=== PATIENT | male | born 1950 | race Caucasian/White ===

== ENCOUNTER → 2024-04-05 | Outpatient (CLI) | payer MEDICARE, SELFPAY ==
[2024-04-05 14:41] LABS: Prostate Specific Antigen 2.11 ng/mL (0-4.00)
== END | disposition home or self-care (01) ==
PROVIDERS: PCP Family Medicine; Referring Provider Family Medicine; Visit Provider Family Medicine
DX: N40.0 Benign prostatic hyperplasia without lower urinary tract symptoms (principal)
CPT/HCPCS: 36415; 84153

== ENCOUNTER 2024-05-03 03:56 | Emergency (ER) | payer MEDICARE, SELFPAY ==
[2024-05-03 04:02] VITALS: BP 156/70; PULSE 78; RESP 18; TEMP 36.9; O2SAT 98
[2024-05-03] MEDS: KETOROLAC INJ 60 MG/2 ML VIAL 30 MG IM (04:57)
--- NOTE | 2024-05-03 05:44 | PD.EDLOWEX ---
Lower Extremity Injury RME/HPI General Chief Complaint: Extremity Injury, Lower Stated Complaint: RIGHT KNEE PAIN Time Seen by Provider: 05/03/24 04:36 Arrival date/time: 05/03/24 03:56 74M with history of HTN presents to ED with R knee pain for the past few days w/o fall/trauma. Patient has chronic pain there, but it is worse in the past few days. Patient denies leg swelling, SOB, previous surgery, and weakness. Limitations: no limitations Related Data Home Medications ?Medication ?Instructions ?Recorded ?Confirmed ACETAMINOPHEN WITH CODEINE 1 - 2 tabs PO QPM ##0 03/04/10 (TYLENOL W/COD #3) Oxycodone Hcl/Acetaminophen * 1 tab PO TID ##0 03/04/10 (PERCOCET 7.5/325 *) Tramadol Hcl 50 mg PO TID ##0 03/04/10 lisinopril 10 mg tablet 10 mg PO DAILY ##0 03/04/10 meloxicam 15 mg tablet 15 mg PO DAILY ##0 03/04/10 Previous Rx's ?Medication ?Instructions ?Recorded amoxicillin 500 mg tablet 500 mg PO TID #21 tabs 02/23/22 ibuprofen 600 mg tablet 600 mg PO TID PRN pain #30 tabs 05/01/22 nirmatrelvir 300 mg (150 mg See Rx Instructions PO .COMPLEX 05/01/22 x2)-ritonavir 100 mg tablet,dose #30 tabs pack (Paxlovid) Allergies Allergy/AdvReac Type Severity Reaction Status Date / Time No Known Allergies Allergy Verified 05/03/24 03:57 Review of Systems Review of Systems Systems Reviewed: All systems reviewed, normal except as documented Constitutional Constitutional: Reports system reviewed and no additional complaints, except as documented, Denies fever(s) and Denies headache(s) ENT Ears, Nose, Mouth, and Throat: Denies disequilibrium and Denies headache(s) Cardiovascular Cardiovascular: Reports system reviewed and no additional complaints, except as documented, Denies chest pain and Denies dyspnea Respiratory Respiratory: Reports system reviewed and no additional complaints, except as documented, Denies cough and Denies dyspnea Gastrointestinal Gastrointestinal: Reports system reviewed and no additional complaints, except as documented, Denies abdominal pain, Denies nausea and Denies vomiting Musculoskeletal Musculoskeletal: Reports as per HPI and Reports arthralgias Neurologic Neurologic: Reports system reviewed and no additional complaints, except as documented, Denies confusion, Denies disequilibrium and Denies headache(s) Psychiatric Psychiatric: Denies confusion Past Medical History Social History SMOKING STATUS: Never smoker ED Exam General Limitations: Present no limitations General appearance: Present alert and in no apparent distress Head Head exam: Present atraumatic Eye Eye exam: Present normal appearance, PERRL and EOMI ENT ENT exam: Present normal exam, normal oropharynx and mucous membranes moist Neck Neck exam: Present normal inspection, full ROM and trachea midline Chest Chest inspection: Present normal inspection and symmetric chest wall rise Respiratory Respiratory exam: Present normal lung sounds bilaterally Cardiovascular Cardiovascular exam: Present regular rate, normal rhythm and normal heart sounds Abdominal Exam Abdominal exam: Present soft and normal bowel sounds Extremities Exam Extremities exam: Present normal inspection and full ROM Back Exam Back exam: Present normal inspection and full ROM Neurological Exam Neurological exam: Present alert, oriented X3 and CN II-XII intact Psychiatric Psychiatric exam: Present normal affect and normal mood Skin Skin exam: Present warm, dry, intact and normal color Course Quality Measures none Orders Category Date Time Status Crutches .NOW Care 05/03/24 04:58 Active Ketorolac Inj [Toradol Inj] Med 05/03/24 04:36 Discontinued 30 mg IM X1 ONE Vital Signs Vital signs: Vital Signs Temperature 98.4 F 05/03/24 04:02 Pulse Rate 78 05/03/24 04:02 Respiratory Rate 18 05/03/24 04:02 Blood Pressure 156/70 H 05/03/24 04:02 Pulse Oximetry (%) 98 05/03/24 04:02 Oxygen Delivery Method Room Air 05/03/24 04:02 O2 at 98% on RA and WNLs Extremity Injury, Lower MDM Narrative MDM Narrative:: 74M with history of HTN presents to ED with R knee pain for the past few days w/o fall/trauma. Patient has chronic pain there, but it is worse in the past few days. Patient denies leg swelling, SOB, previous surgery, and weakness. Physical exam reveals no R knee tenderness. ROM intact, but painful. No leg swelling. Clear lungs. Patient is afebrile, calm, and alert. Meds, crutches, and guidance counselor given. Patient data External records reviewed:: [facility] previous records Clinical information provided by:: patient Social determinants that could affect healthcare access:: none Patient has the following chronic illnesses:: HTN How is presenting disease/condition affected by chronic disease/condition?: uneffected by Evaluation data The following diagnostics were reviewed and interpreted by me:: other (specify) (none) Lab and/or radiology exams considered but not ordered:: not ordered Interpretation Summary: n/a Medications / Prescriptions Medications or Prescriptions considered but not ordered:: ordered Medication administrations:: Medication Administration History Discontinued Medications Ketorolac Tromethamine (Ketorolac Inj 60 Mg/2 Ml Vial) 30 mg IM X1 ONE Stop: 05/03/24 04:37 Last Admin: 05/03/24 04:57 Dose: 30 mg Documented By: CVL above Consultations Consultation(s) initiated? (list below): No Diagnosis Extremity Injury, Lower Differential Diagnosis: ankle sprain and strain, acute internal derangement of knee, fracture of femur, fracture of hip, puncture wound of foot, fracture of toe, ankle fracture and other (DVT, AAA) Most likely diagnosis given after review of the tests above:: internal derangement of knee Admission Indicated Admission indicated?: not indicated Admission Request Was there a request for admission?: No Disposition Plan Disposition Plan: Discharge Discharge Attestation Discharge Attestation: The patient and all family members were given an opportunity to ask questions and understood the discharge instructions. Discharge instructions specifically effects, indications for sooner follow up or return to the emergency department, and the expected course of current diagnosis. Patient condition: Stable Discharge Plan Plan Patient Disposition: HOME (Self Care) Disposition Comment: Stable Prescriptions/Referrals Prescriptions/Med Rec: No Action ACETAMINOPHEN WITH CODEINE (TYLENOL W/COD #3) 1 TAB tablet 1 - 2 tabs PO QPM Qty: 0 meloxicam 15 MG tablet 15 mg PO DAILY Qty: 0 lisinopril 10 MG tablet 10 mg PO DAILY Qty: 0 Oxycodone Hcl/Acetaminophen * (PERCOCET 7.5/325 *) 1 TAB tablet 1 tab PO TID Qty: 0 Tramadol Hcl 50 MG tablet 50 mg PO TID Qty: 0 amoxicillin 500 mg tablet 500 mg PO TID Qty: 21 0RF Paxlovid 300 mg (150 mg x 2)-100 mg tablets,dose pack See Rx Instructions .ROUTE .COMPLEX Qty: 30 0RF Rx Instructions: take TWO 150 mg tablets of nirmatrelvir with ONE 100 mg tablet of ritonavir twice daily for 5 days ibuprofen 600 mg tablet 600 mg PO TID PRN (Reason: pain) Qty: 30 0RF Problem List Clinical Impression: Knee pain Patient/Caregiver Discharge Instructions Education Materials: ED Arthralgia Additional Instructions: Please follow-up with PCP within 24-48 hours and return immediately if symptoms worsen. If problem persists, recommend outpatient PT and/or MRI follow-up. In the meantime, rest, use ice/heat, and/or compression. Print Language: New Zealander Stand Alone Forms: Patient Portal Info Letter PA/CHURCH MUSICIAN Supervising Physician PA/CHURCH MUSICIAN Supervising Physician: Dr. Parekh
== END 2024-05-03 05:29 | disposition home or self-care (01) ==
LOC: SERX 05:35
PROVIDERS: Emergency Provider Emergency Medicine
DX: M25.561 Pain in right knee (principal)
CPT/HCPCS: 96372; 99283; J1885

== ENCOUNTER 2024-11-08 06:54 | Emergency (ER) | payer MEDICARE, SELFPAY ==
[2024-11-08 07:01] VITALS: BP 139/73; PULSE 113; RESP 18; TEMP 37.2; O2SAT 96; BMI 29.1
[2024-11-08] MEDS: DEXAMETHASONE SOD PHOS INJ 10 MG/ML VIAL PO (07:24)
[2024-11-08] MEDS: KETOROLAC INJ 30 MG/ML VIAL IM (07:25)
[2024-11-08] MEDS: COLCHICINE 0.6 MG TABLET 1.2 MG PO (07:28)
--- NOTE | 2024-11-08 07:38 | XR_ITS ---
Examination: Duplex scan of the lower extremity, unilateral right Date and time of exam: November 08, 2024 0753 hrs. Indications: Right foot pain and swelling beginning 3 days ago, history gadolinium one year Technique: Duplex scan of the extremity veins using B-mode/grayscale imaging and Doppler spectral analysis and color flow Attention is directed to internal echogenicity, compression and augmentation involving these veins, color flow assessment, spectral analysis Findings: Major deep venous structures in the extremity demonstrate normal course and caliber. There is no evidence of deep vein thrombosis. Normal color flow and spectral analysis Impression: Negative for DVT..
--- NOTE | 2024-11-08 07:38 | XR_ITS ---
Examination: Foot, right, 3 views Technique: AP, oblique, lateral views foot, 3 views Date and time of exam: November 08, 2024 0738 hrs. Indications: Right foot swelling and pain beginning 3 days ago, history gadolinium Findings: Erosive changes distal first metatarsal with soft tissue calcifications, gadolinium arthropathy pattern No fracture No foreign body Impression: Findings most consistent with gouty arthropathy right first metatarsophalangeal joint
--- NOTE | 2024-11-08 08:25 | EDNOTE_ITS ---
<Statement entered by Gill Elliott MD - 11/27/24 06:06> As co-signing physician, I was present and available for consult prn. I concur with the plan and care as documented by the midlevel provider. Lower Extremity Injury RME/HPI General Chief Complaint: Ankle/Foot Injury Stated Complaint: RIGHT FOOT SWOLLEN, GOUT Time Seen by Provider: 11/08/24 06:57 Arrival date/time: 11/08/24 06:54 74-year-old male with history of gout presents to the emergency department for complaints of right great toe pain patient worsens onset approximately 1 week ago patient reports similar symptoms in the past Limitations: no limitations Related Data Home Medications ?Medication ?Instructions ?Recorded ?Confirmed ACETAMINOPHEN WITH CODEINE 1 - 2 tabs PO QPM ##0 03/04 (TYLENOL W/COD #3) Oxycodone Hcl/Acetaminophen * 1 tab PO TID ##0 1 (PERCOCET 7.5/325 *) Tramadol Hcl 50 mg PO TID ##0 03/04/10 lisinopril 10 mg tablet 10 mg PO DAILY ##0 03/04/10 meloxicam 15 mg tablet 15 mg PO DAILY ##0 03/04/10 Previous Rx's ?Medication ?Instructions ?Recorded amoxicillin 500 mg tablet 500 mg PO TID #21 tabs 02/23 ibuprofen 600 mg tablet 600 mg PO TID PRN pain #30 t abs 05/01/22 nirmatrelvir 300 mg (150 mg See Rx Instructions PO .CO MPLEX 05/01/22 x2)-ritonavir 100 mg tablet,dose #30 tabs pack (Paxlovid) indomethacin 50 mg capsule 50 mg PO TID 5 days #15 cap s 11/08/24 prednisone 10 mg tablet 30 mg (3 x 10 mg) PO BID 3 d ays 11/08/24 #18 tabs Allergies Allergy/AdvReac Type Severity Reaction Status Date / Time No Known Allergies Allergy Verified 05/03/24 03:57 Review of Systems Review of Systems Systems Reviewed: All systems reviewed, normal except as documented Constitutional Constitutional: Reports system reviewed and no additional complaints, except as documented, Denies fever(s) and Denies headache(s) Eyes Eyes: Reports system reviewed and no additional complaints, except as documented and Denies blurry vision ENT Ears, Nose, Mouth, and Throat: Reports system reviewed and no additional complaints, except as documented, Denies headache(s), Denies nasal congestion, Denies nasal discharge and Denies neck pain Cardiovascular Cardiovascular: Reports system reviewed and no additional complaints, except as documented, Denies chest pain and Denies dyspnea Respiratory Respiratory: Reports system reviewed and no additional complaints, except as documented, Denies chest congestion, Denies cough and Denies dyspnea Gastrointestinal Gastrointestinal: Reports system reviewed and no additional complaints, except as documented and Denies abdominal pain Musculoskeletal Musculoskeletal: Reports system reviewed and no additional complaints, except as documented, Reports arthralgias (Right great toe pain), Denies deformity, Denies neck pain, Denies numbness, Denies stiffness and Denies tingling Integumentary/Breasts Skin/Breast: Reports system reviewed and no additional complaints, except as documented and Denies rash Neurologic Neurologic: Reports system reviewed and no additional complaints, except as documented, Reports as per HPI, Denies headache(s), Denies numbness and Denies tingling Past Medical History Social History SMOKING STATUS: Never smoker ED Exam General Limitations: Present no limitations General appearance: Present alert and in no apparent distress Head Head exam: Present atraumatic, normocephalic and normal inspection Eye Eye exam: Present normal appearance, PERRL and EOMI ENT ENT exam: Present normal exam, normal oropharynx and mucous membranes moist Neck Neck exam: Present normal inspection, full ROM and trachea midline Chest Chest inspection: Present normal inspection and symmetric chest wall rise Respiratory Respiratory exam: Present normal lung sounds bilaterally Cardiovascular Cardiovascular exam: Present regular rate, normal rhythm and normal heart sounds Abdominal Exam Abdominal exam: Present soft and normal bowel sounds Extremities Exam Extremities exam: Present full ROM, tenderness, normal capillary refill and joint swelling Back Exam Back exam: Present normal inspection and full ROM Neurological Exam Neurological exam: Present alert, oriented X3 and CN II-XII intact Psychiatric Psychiatric exam: Present normal affect and normal mood Skin Skin exam: Present warm, dry, intact and normal color Course Quality Measures none Orders Category Date Time Status US venous doppler LE RT Stat Exams 11/08/24 07:38 Completed XR foot comp RT min 3V Stat Exams 11/08/24 07:38 Completed Colchicine Med 11/08/24 07:17 Discontinued 1.2 mg PO X1 ONE Dexamethasone Inj [Decadron Inj] Med 11/08/24 07:17 Discontinued 10 mg PO X1 ONE Ketorolac Inj [Toradol Inj] Med 11/08/24 07:17 Discontinued 30 mg IM X1 ONE Vital Signs Vital signs: Vital Signs Temperature 98.9 F 11/08/24 07:01 Pulse Rate 113 H 11/08/24 07:01 Respiratory Rate 18 11/08/24 07:01 Blood Pressure 139/73 H 11/08/24 07:01 Pulse Oximetry (%) 96 11/08/24 07:01 Oxygen Delivery Method Room Air 11/08/24 07:01 O2 saturation 96% room air within normal limits Extremity Injury, Lower MDM Narrative MDM Narrative:: 74-year-old male with history of gout presents to the emergency department for complaints of right great toe pain patient worsens onset approximately 1 week ago patient reports similar symptoms in the past On exam patient well-appearing patient does not appear ill or toxic in no acute distress Imaging obtained no acute emergent findings noted X-ray of the right foot consistent Patient discharged home in no distress to follow-up with primary care doctor in the next 24 to 48 hours and for any worsening symptoms to return to the ER immediately Patient data External records reviewed:: [facility] previous records Clinical information provided by:: patient Social determinants that could affect healthcare access:: none Patient has the following chronic illnesses:: None How is presenting disease/condition affected by chronic disease/condition?: no chronic disease Evaluation data The following diagnostics were reviewed and interpreted by me:: radiology exam(s) Lab and/or radiology exams considered but not ordered:: Radiology obtain Interpretation Summary: Reviewed by me Medications / Prescriptions Medications or Prescriptions considered but not ordered:: Given Medication administrations:: Medication Administration History Discontinued Medications Colchicine (Colchicine 0.6 Mg Tablet) 1.2 mg PO X1 ONE Stop: 11/08/24 07:18 Last Admin: 11/08/24 07:28 Dose: 1.2 mg Documented By: GM Dexamethasone Sodium Phosphate (Dexamethasone Sod Phos Inj 10 Mg/Ml Vial) 10 mg PO X1 ONE Stop: 11/08/24 07:18 Last Admin: 11/08/24 07:24 Dose: 10 mg Documented By: GM Comments: OK TO GIVE PO PER PROVIDER. Ketorolac Tromethamine (Ketorolac Inj 30 Mg/Ml Vial) 30 mg IM X1 ONE Stop: 11/08/24 07:18 Last Admin: 11/08/24 07:25 Dose: 30 mg Documented By: GM Given Consultations Consultation(s) initiated? (list below): No Diagnosis Extremity Injury, Lower Differential Diagnosis: fracture of toe and other (Toe sprain, gout) Most likely diagnosis given after review of the tests above:: Gout Admission Indicated Admission indicated?: not indicated Admission Request Was there a request for admission?: No Disposition Plan Disposition Plan: Discharge Discharge Attestation Discharge Attestation: The patient and all family members were given an opportunity to ask questions and understood the discharge instructions. Discharge instructions specifically effects, indications for sooner follow up or return to the emergency department, and the expected course of current diagnosis. Patient condition: Stable Discharge Plan Plan Patient Disposition: HOME (Self Care) Discharge Disposition comment: Stable Prescriptions/Referrals Prescriptions/Med Rec: New prednisone 10 mg tablet 30 mg PO BID 3 Days Qty: 18 0RF indomethacin 50 mg capsule 50 mg PO TID 5 Days Qty: 15 0RF Rx Instructions: administer with food or milk No Action ACETAMINOPHEN WITH CODEINE (TYLENOL W/COD #3) 1 TAB tablet 1 - 2 tabs PO QPM Qty: 0 meloxicam 15 MG tablet 15 mg PO DAILY Qty: 0 lisinopril 10 MG tablet 10 mg PO DAILY Qty: 0 Oxycodone Hcl/Acetaminophen * (PERCOCET 7.5/325 *) 1 TAB tablet 1 tab PO TID Qty: 0 Tramadol Hcl 50 MG tablet 50 mg PO TID Qty: 0 amoxicillin 500 mg tablet 500 mg PO TID Qty: 21 0RF Paxlovid 300 mg (150 mg x 2)-100 mg tablets,dose pack See Rx Instructions .ROUTE .COMPLEX Qty: 30 0RF Rx Instructions: take TWO 150 mg tablets of nirmatrelvir with ONE 100 mg tablet of ritonavir twice daily for 5 days ibuprofen 600 mg tablet 600 mg PO TID PRN (Reason: pain) Qty: 30 0RF Referrals: Benny Lopez PA-C [Primary Care Provider] - In 1 week Problem List Clinical Impression: Gouty arthritis of right foot Patient/Caregiver Discharge Instructions Education Materials: ED Gout Additional Instructions: Please follow up with your primary care doctor in the next 24-48hrs for any worsening symptoms return here immediately Print Language: Palauan Stand Alone Forms: Janine Award Info., Patient Portal Info Letter PA/MACHINE SORTER Supervising Physician PA/MACHINE SORTER Supervising Physician: Dr. elliott
== END 2024-11-08 08:38 | disposition home or self-care (01) ==
PROVIDERS: Emergency Provider Emergency Medicine; PCP Physician Assistant
DX: M10.071 Idiopathic gout, right ankle and foot (principal)
CPT/HCPCS: 73630; 93971; 96372; 99283; J1100; J1885; A9270

== ENCOUNTER 2024-11-13 19:04 | Emergency (ER) | payer MEDICARE, SELFPAY ==
--- NOTE | 2024-11-13 19:07 | EKG_ITS ---
[facility] Test Date: 2024-11-13 Pat Name: MARTÍNEZ HERNANDEZ Department: Room: - Gender: Male Access Manager: : 1950 Requested By: ED Temporary Provider Order Number: [id number] Reading MD: ED Temporary Provider Measurements Intervals [place] Rate: 52 P: OK: QRS: 1 QRSD: 97 T: 89 QT: 379 QTc: 354 Interpretive Statements SINUS BRADYCARDIA WITH 2ND DEGREE AV BLOCK, 2:1 OR MOBITZ TYPE II NONSPECIFIC T-WAVE ABNORMALITY CRITICAL TEST RESULT No previous ECG available for comparison /store/S0/[id number].pdf
[2024-11-13 19:55] VITALS: BP 131/63; PULSE 65; RESP 17; TEMP 36.6; O2SAT 98
--- NOTE | 2024-11-13 20:01 | PD.EDRME ---
Rapid Medical Screening Exam RME Arrival date/time: 11/13/24 19:04 Chief Complaint: Chest Pain Time Seen by Provider: 11/13/24 19:42 Vital signs: Vital Signs Temperature 97.9 F 11/13/24 19:55 Pulse Rate 65 11/13/24 19:55 Respiratory Rate 17 11/13/24 19:55 Blood Pressure 131/63 H 11/13/24 19:55 Pulse Oximetry (%) 98 11/13/24 19:55 Oxygen Delivery Method Room Air 11/13/24 19:55 E Narrative: Dizziness, shortness of breath, nausea x 10 days
--- NOTE | 2024-11-13 20:02 | XR_ITS ---
Examination: AP chest single view Technique: AP portable semiupright chest single view Date and time: November 13, 2024 2109 hrs. Indications: Shortness of breath beginning 10 days ago. Findings: Mild prominence left ventricle Minor blunting of the right lateral costophrenic angle. No pneumonia or pulmonary edema. Significant osteopenia Impression: No pneumonia or pulmonary edema
[2024-11-13 20:54] LABS: Basophils # (Auto) 0.0 Thou/mm3 (0.0-0.2); Basophils % (Auto) 0 % (0-2.5); Eosinophils # (Auto) 0.3 Thou/mm3 (0.0-0.5); Eosinophils % (Auto) 3 % (0-10); Hematocrit 37.3 % (41.0-53.0); Hemoglobin 12.4 g/dL (13.5-16.0); Immature Granulocytes Auto 0.10 Thou/mm3 (0.00-0.00); Lymphocytes # (Auto) 2.3 Thou/mm3 (1.0-4.8); Lymphocytes % (Auto) 22 % (10-50); Mean Corpuscular HGB Conc 33.2 g/dl (31.0-37.0); Mean Corpuscular Hemoglobin 30.6 pg (25.0-35.0); Mean Corpuscular Volume 92 fL (80-100); Monocytes # (Auto) 0.9 Thou/mm3 (0.0-0.8); Monocytes % (Auto) 9 % (0-12); Neutrophils # (Auto) 6.9 Thou/mm3 (1.8-7.7); Neutrophils % (Auto) 66 % (37-80); Nucleated Red Blood Cell # 0.00 Thou/mm3 (0.00-0.00); Nucleated Red Blood Cell % 0 /100 WBC (0); Platelet Count 219 Thou/mm3 (140-440); RDW Standard Deviation 44.1 fL (35.1-43.9); Red Blood Count 4.05 Miln/mm3 (4.50-5.90); White Blood Count 10.5 Thou/mm3 (3.8-10.6)
[2024-11-13 20:58] VITALS: BP 181/81; PULSE 62; RESP 16; TEMP 36.6; O2SAT 100; BMI 28.6
--- NOTE | 2024-11-13 21:04 | EDNOTE_ITS ---
ED Dizzyness RME/HPI General Chief Complaint: Dizziness Stated Complaint: Dizziness Time Seen by Provider: 11/13/24 21:05 Arrival date/time: 11/13/24 19:04 RME / HPI RME / HPI Narrative: Dizziness, shortness of breath, nausea x [address] CASTELAN MAIN ED EVALUATION: 74 y/o male with Hx of HTN and Hypercholesterolemia presents to ED c/o worsened dizziness and shortness of breath for several days. Also reports abdominal bloating. States symptoms usually resolve after taking HTN medication. Patient was told by PMD that he was close to having AK in the past. Denies Hx of DM or smoking. Related Data Home Medications ?Medication ?Instructions ?Recorded ?Confirmed ACETAMINOPHEN WITH CODEINE 1 - 2 tabs PO QPM ##0 03/04 (TYLENOL W/COD #3) Oxycodone Hcl/Acetaminophen * 1 tab PO TID ##0 1 (PERCOCET 7.5/325 *) Tramadol Hcl 50 mg PO TID ##0 03/04/10 lisinopril 10 mg tablet 10 mg PO DAILY ##0 03/04/10 meloxicam 15 mg tablet 15 mg PO DAILY ##0 03/04/10 Previous Rx's ?Medication ?Instructions ?Recorded amoxicillin 500 mg tablet 500 mg PO TID #21 tabs 02/23 ibuprofen 600 mg tablet 600 mg PO TID PRN pain #30 t abs 05/01/22 nirmatrelvir 300 mg (150 mg See Rx Instructions PO .CO MPLEX 05/01/22 x2)-ritonavir 100 mg tablet,dose #30 tabs pack (Paxlovid) Allergies Allergy/AdvReac Type Severity Reaction Status Date / Time No Known Allergies Allergy Verified 11/13/24 19:06 Review of Systems Review of Systems Systems Reviewed: All systems reviewed, normal except as documented Past Medical History Past Medical History CARDIAC: Positive Hypercholesterolemia and Hypertension GENITOURINARY: Positive Benign Prostatic Hyperplasia OTHER HISTORY: Positive Falls ED Exam Narrative Physical exam: Generally patient is alert and in no obvious distress, heart regular rate and rhythm, lungs clear to auscultation equal bilaterally, abdomen soft bowel sounds present nondistended nontender extremities show 1+ pitting pedal edema extending care home up tibias bilaterally with symmetrical swelling. Neurologic exam Elie Coma Scale is 15 without focal motor deficit Course Quality Measures none Orders Category Date Time Status EKG (ED ONLY) *Do not use* NOW Care 11/13/24 19:07 Completed CXR [XR chest 1V] Stat Exams 11/13/24 20:02 Taken EKG (ED Only) Stat Exams 11/13/24 19:07 Draft BNP [B-Type Natriuretic Peptide] Stat Lab 11/13/24 20:26 Completed CBC Stat Lab 11/13/24 20:26 Completed CMP [Comprehensive Metabolic Panel] Stat Lab 11/13/24 20:26 Completed Troponin I Stat Lab 11/13/24 20:26 Completed Vital Signs Vital signs: Vital Signs Temperature 97.9 F 11/13/24 19:55 Pulse Rate 65 11/13/24 19:55 Respiratory Rate 17 11/13/24 19:55 Blood Pressure 131/63 H 11/13/24 19:55 Pulse Oximetry (%) 98 11/13/24 19:55 Oxygen Delivery Method Room Air 11/13/24 19:55 Dizziness MDM Narrative MDM Narrative:: Scribe Attestation: I, Elizabeth Galvez, am scribing for and in the presence of Dr. Castelan. Provider Notation: Although this document has been carefully reviewed, there may still be some phonetic and other typographical errors. These errors are purely grammatical due to imperfections in the software program and should not be construed in any way to compromise the substance of the patient's medical care during this visit. Chest pain has been going on for many days. It is mostly related when his blood pressure may be getting high. Troponin is not elevated. BNP is not elevated. Chest x-ray shows normal cardiac silhouette with clear lungs. EKG shows sinus bradycardia at a rate of 52 without ischemic change or ectopy. Patient's blood pressure has slightly been increasing here in the emergency room to 181/80 at the time of my evaluation. He may go home and take his antihypertensive medication as prescribed. Follow-up with his doctor for further treatment and evaluation. Patient's heart score is 4 due to his risk factors and age. However, troponin is not elevated and that is a troponin with chest pain that has been going on much longer than 3 hours. He may follow-up with his doctor for further treatment and evaluation. Continue current blood pressure monitoring and treatment. When really questioned the patient is not experiencing chest pain he is more experiencing dyspnea with dyspnea on exertion. Patient data External records reviewed:: [facility] previous records (Reviewed prior ED records from 11/08/24. Patient was seen for Gouty arthritis of right foot.) Clinical information provided by:: patient Social determinants that could affect healthcare access:: none Patient has the following chronic illnesses:: HTN How is presenting disease/condition affected by chronic disease/condition?: exacerbated by Evaluation data The following diagnostics were reviewed and interpreted by me:: lab results, radiology exam(s) and EKG tracing(s) Lab and/or radiology exams considered but not ordered:: None Interpretation Summary: RADIOLOGY Chest X-Ray: Pending official radiology report. Medications / Prescriptions Medications or Prescriptions considered but not ordered:: None Medication administrations:: See above if any Consultations Consultation(s) initiated? (list below): No Diagnosis Dizziness Differential Diagnosis: adverse reaction to drug, benign paroxysmal positional vertigo, orthostatic hypotension, cerebrovascular accident, acute vestibular neuronitis, transient cerebral ischemia and other (Hypertensive urgency vs emergency) Most likely diagnosis given after review of the tests above:: none Admission Indicated Admission indicated?: not indicated Explain why admission is indicated or not indicated:: Patient does not meet admission criteria Admission Request Was there a request for admission?: No Disposition Plan Disposition Plan: Discharge Discharge Attestation Discharge Attestation: The patient and all family members were given an opportunity to ask questions and understood the discharge instructions. Discharge instructions specifically effects, indications for sooner follow up or return to the emergency department, and the expected course of current diagnosis. Patient condition: Stable Discharge Plan Plan Patient Disposition: HOME (Self Care) Prescriptions/Referrals Prescriptions/Med Rec: No Action ACETAMINOPHEN WITH CODEINE (TYLENOL W/COD #3) 1 TAB tablet 1 - 2 tabs PO QPM Qty: 0 meloxicam 15 MG tablet 15 mg PO DAILY Qty: 0 lisinopril 10 MG tablet 10 mg PO DAILY Qty: 0 Oxycodone Hcl/Acetaminophen * (PERCOCET 7.5/325 *) 1 TAB tablet 1 tab PO TID Qty: 0 Tramadol Hcl 50 MG tablet 50 mg PO TID Qty: 0 amoxicillin 500 mg tablet 500 mg PO TID Qty: 21 0RF Paxlovid 300 mg (150 mg x 2)-100 mg tablets,dose pack See Rx Instructions .ROUTE .COMPLEX Qty: 30 0RF Rx Instructions: take TWO 150 mg tablets of nirmatrelvir with ONE 100 mg tablet of ritonavir twice daily for 5 days ibuprofen 600 mg tablet 600 mg PO TID PRN (Reason: pain) Qty: 30 0RF Referrals: Benny Lopez PA-C [Primary Care Provider] - In 1 week Problem List Clinical Impression: Dyspnea, Hypertension Patient/Caregiver Discharge Instructions Education Materials: ED Shortness of Breath (Dyspnea), ED Hypertension, Established Additional Instructions: At this time continue current medications including your blood pressure medication. Follow-up with your doctor who prescribes your medication for medication adjustment as needed. There is no evidence of heart attack or heart failure at this time. Print Language: Greenlandic Stand Alone Forms: Janine Award Info., Patient Portal Info Letter
[2024-11-13 21:12] LABS: B-Type Natriuretic Peptide 45 pg/mL (0-100)
[2024-11-13 21:15] LABS: Alanine Aminotransferase 24 U/L (10-49); Albumin, Serum 3.8 gm/dL (3.4-4.8); Albumin/Globulin Ratio 1.4 (1.2-2.2); Alkaline Phosphatase 93 U/L (46-116); Anion Gap 7 (7-16); Aspartate Amino Transferase 21 U/L (0-34); BUN/Creatinine Ratio 19 Ratio (12-20); Bilirubin,Total 0.3 mg/dL (0.3-1.2); Blood Urea Nitrogen 27 mg/dL (9-23); Calcium 9.1 mg/dL (8.3-10.6); Calcium (Corrected) 9.3 mg/dL (8.5-10.1); Carbon Dioxide 29.2 mMol/L (20.0-31.0); Chloride 104 mMol/L (98-107); Creatinine (Component) 1.4 mg/dL (0.6-1.3); Estimated Creatinine Clearance 43.2 mL/min (>60); Globulin 2.7 gm/dL (2.3-3.5); Glucose 133 mg/dL (74-106); Osmolality,Calculated 286 (275-295); Potassium 4.1 mMol/L (3.4-5.1); Sodium 140 mMol/L (136-145); Total Protein 6.5 gm/dL (5.7-8.2); Troponin I < 0.020 ng/mL (0.0-0.045); eGFR 52 See Note
== END 2024-11-13 21:54 | disposition home or self-care (01) ==
PROVIDERS: Physician Assistant; Emergency Provider Emergency Medicine; PCP Physician Assistant
DX: I10 Essential (primary) hypertension (principal); R06.00 Dyspnea, unspecified; R07.9 Chest pain, unspecified; R00.1 Bradycardia, unspecified; E78.00 Pure hypercholesterolemia, unspecified; Z79.899 Other long term (current) drug therapy
CPT/HCPCS: 36415; 71045; 80053; 83880; 84484; 85025; 93005; 99283

== ENCOUNTER 2024-11-14 01:27 | Emergency (ER) | payer MEDICARE, SELFPAY ==
[2024-11-14 01:42] VITALS: BP 129/72; PULSE 84; RESP 18; TEMP 36.7; O2SAT 96
--- NOTE | 2024-11-14 02:23 | PD.EDHA ---
ED Headache RME/HPI General Chief Complaint: General Adult/Misc Complain Stated Complaint: HEADACHE, HIGH BP Time Seen by Provider: 11/14/24 02:22 Source: patient, RN notes reviewed and old records reviewed Arrival date/time: 11/14/24 01:27 Mode of arrival: ambulatory Limitations: no limitations RME / HPI RME / HPI Narrative: 74yom presents ED for generalized headache. Patient stated he is unable to sleep. Of note, patient sleeping in triage room at time of evaluation. Patient was just discharged from ED at 2130 last night after full workup for dizziness, shortness of breath. 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 Patient denies fever, neck pain, vision changes. Related Data Home Medications ?Medication ?Instructions ?Recorded ?Confirmed ACETAMINOPHEN WITH CODEINE 1 - 2 tabs PO QPM ##0 03/04/10 (TYLENOL W/COD #3) Oxycodone Hcl/Acetaminophen * 1 tab PO TID ##0 03/04/10 (PERCOCET 7.5/325 *) Tramadol Hcl 50 mg PO TID ##0 03/04/10 lisinopril 10 mg tablet 10 mg PO DAILY ##0 03/04/10 meloxicam 15 mg tablet 15 mg PO DAILY ##0 03/04/10 Previous Rx's ?Medication ?Instructions ?Recorded amoxicillin 500 mg tablet 500 mg PO TID #21 tabs 02/23/22 ibuprofen 600 mg tablet 600 mg PO TID PRN pain #30 tabs 05/01/22 nirmatrelvir 300 mg (150 mg See Rx Instructions PO .COMPLEX 05/01/22 x2)-ritonavir 100 mg tablet,dose #30 tabs pack (Paxlovid) acetaminophen 325 mg tablet 325 mg PO QID #30 tabs 11/14/24 (Tylenol) acetaminophen 500 mg tablet 1,000 mg (2 x 500 mg) PO Q6H PRN 11/14/24 (Tylenol Extra Strength) pain #20 tabs Allergies Allergy/AdvReac Type Severity Reaction Status Date / Time No Known Allergies Allergy Verified 11/14/24 21:01 Review of Systems Review of Systems Systems Reviewed: All systems reviewed, normal except as documented Constitutional Constitutional: Denies chills, Denies fever(s) and Reports headache(s) Eyes Eyes: Denies blurry vision and Denies loss of vision ENT Ears, Nose, Mouth, and Throat: Reports headache(s), Denies nasal congestion and Denies neck pain Gastrointestinal Gastrointestinal: Denies nausea and Denies vomiting Musculoskeletal Musculoskeletal: Denies neck pain Neurologic Neurologic: Reports headache(s) and Denies loss of vision ED Exam General Limitations: Present no limitations General appearance: Present alert and in no apparent distress Head Head exam: Present atraumatic and normocephalic Eye Eye exam: Present normal appearance, PERRL and EOMI ENT ENT exam: Present normal exam and mucous membranes moist Neck Neck exam: Present normal inspection and full ROM; Absent meningismus Chest Chest inspection: Present normal inspection and symmetric chest wall rise Respiratory Respiratory exam: Present normal lung sounds bilaterally; Absent respiratory distress Cardiovascular Cardiovascular exam: Present regular rate and normal rhythm Extremities Exam Extremities exam: Present normal inspection and full ROM Back Exam Back exam: Present normal inspection and full ROM; Absent tenderness Neurological Exam Neurological exam: Present alert, oriented X3, CN II-XII intact and normal gait; Absent motor sensory deficit Psychiatric Psychiatric exam: Present normal affect and normal mood Skin Skin exam: Present warm, dry, intact and normal color Course Quality Measures none Orders Category Date Time Status Acetaminophen Tab [Tylenol ES Tab] Med 11/14/24 02:25 Discontinued 1,000 mg PO X1 ONE DiphenhydrAMINE [Benadryl] Med 11/14/24 02:25 Discontinued 25 mg PO X1 ONE Metoclopramide [Reglan] Med 11/14/24 02:25 Discontinued 10 mg PO X1 ONE Vital Signs Vital signs: Vital Signs Temperature 98.0 F 11/14/24 01:42 Pulse Rate 84 11/14/24 01:42 Respiratory Rate 18 11/14/24 01:42 Blood Pressure 129/72 11/14/24 01:42 Pulse Oximetry (%) 96 11/14/24 01:42 Oxygen Delivery Method Room Air 11/14/24 01:42 Headache MDM Narrative MDM Narrative:: 74yom presents ED for generalized headache. Patient stated he is unable to sleep. Of note, patient sleeping in triage room at time of evaluation. Patient was just discharged from ED at 2130 last night after full workup for dizziness, shortness of breath. 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 Patient denies fever, neck pain, vision changes. Headache treated in ED. Patient is well-appearing, afebrile, vitals are stable. He is neurologically intact. ED workup from last night was reviewed and reassuring. Encouraged rest, fluids, symptomatic treatment prn. Close PCP follow-up recommended. Stable for discharge, RTED precautions given. Patient data External records reviewed:: [facility] previous records (11/13/24 ED visit for shortness of breath) Clinical information provided by:: patient Social determinants that could affect healthcare access:: other (specify) (poor access to healthcare, acculturation difficulty) Patient has the following chronic illnesses:: Hypertension How is presenting disease/condition affected by chronic disease/condition?: uneffected by Evaluation data The following diagnostics were reviewed and interpreted by me:: other (specify) (None) Lab and/or radiology exams considered but not ordered:: CT head: Patient is neurologically intact. No red flag s/sxs Interpretation Summary: na Medications / Prescriptions Medications or Prescriptions considered but not ordered:: No antibiotics recommended at this time Medication administrations:: Medication Administration History Discontinued Medications Acetaminophen (Acetaminophen 500 Mg Tablet) 1,000 mg PO X1 ONE Stop: 11/14/24 02:26 Last Admin: 11/14/24 02:54 Dose: 1,000 mg Documented By: PETER Diphenhydramine HCl (Diphenhydramine 25 Mg Capsule) 25 mg PO X1 ONE Stop: 11/14/24 02:26 Last Admin: 11/14/24 02:54 Dose: 25 mg Documented By: PETER Metoclopramide HCl (Metoclopramide 5 Mg Tablet) 10 mg PO X1 ONE Stop: 11/14/24 02:26 Last Admin: 11/14/24 02:55 Dose: 10 mg Documented By: PETER Above medications administered in ED Consultations Consultation(s) initiated? (list below): No Diagnosis Differential diagnosis headache: migraine, tension headache, subarachnoid hemorrhage, headache, meningitis and sinusitis Most likely diagnosis given after review of the tests above:: Headache Admission Indicated Admission indicated?: not indicated Admission Request Was there a request for admission?: No Disposition Plan Disposition Plan: Discharge Discharge Attestation Discharge Attestation: The patient and all family members were given an opportunity to ask questions and understood the discharge instructions. Discharge instructions specifically effects, indications for sooner follow up or return to the emergency department, and the expected course of current diagnosis. Patient condition: Stable Discharge Plan Plan Patient Disposition: HOME (Self Care) Patient condition on transfer: Stable Prescriptions/Referrals Prescriptions/Med Rec: New acetaminophen [Tylenol Extra Strength] 500 mg tablet 1,000 mg PO Q6H PRN (Reason: pain) Qty: 20 0RF No Action ACETAMINOPHEN WITH CODEINE (TYLENOL W/COD #3) 1 TAB tablet 1 - 2 tabs PO QPM Qty: 0 meloxicam 15 MG tablet 15 mg PO DAILY Qty: 0 lisinopril 10 MG tablet 10 mg PO DAILY Qty: 0 Oxycodone Hcl/Acetaminophen * (PERCOCET 7.5/325 *) 1 TAB tablet 1 tab PO TID Qty: 0 Tramadol Hcl 50 MG tablet 50 mg PO TID Qty: 0 amoxicillin 500 mg tablet 500 mg PO TID Qty: 21 0RF Paxlovid 300 mg (150 mg x 2)-100 mg tablets,dose pack See Rx Instructions .ROUTE .COMPLEX Qty: 30 0RF Rx Instructions: take TWO 150 mg tablets of nirmatrelvir with ONE 100 mg tablet of ritonavir twice daily for 5 days ibuprofen 600 mg tablet 600 mg PO TID PRN (Reason: pain) Qty: 30 0RF acetaminophen [Tylenol] 325 mg tablet 325 mg PO QID Qty: 30 0RF Referrals: Benny Lopez PA-C [Primary Care Provider] - In 1 week Problem List Clinical Impression: Headache Patient/Caregiver Discharge Instructions Education Materials: Self-Care for Headaches Print Language: Niuean Stand Alone Forms: Janine Award Info., Patient Portal Info Letter PA/AKIKO Supervising Physician PA/AKIKO Supervising Physician: Darrell
[2024-11-14] MEDS: ACETAMINOPHEN 500 MG TABLET 1000 MG PO (02:54)
[2024-11-14] MEDS: METOCLOPRAMIDE 5 MG TABLET 10 MG PO (02:55)
[2024-11-14 03:30] VITALS: RESP 18
== END 2024-11-14 03:30 | disposition home or self-care (01) ==
PROVIDERS: Emergency Provider Emergency Medicine; PCP Physician Assistant
DX: R51.9 Headache, unspecified (principal)
CPT/HCPCS: 99283; A9270

== ENCOUNTER 2024-11-14 09:04 | Emergency (ER) | payer MEDICARE, SELFPAY ==
[2024-11-14 09:33] VITALS: BP 144/67; PULSE 66; RESP 18; TEMP 36.7; O2SAT 97; BMI 28.6
--- NOTE | 2024-11-14 09:42 | EKG_ITS ---
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
--- NOTE | 2024-11-14 09:42 | XR_ITS ---
Examination: CT abdomen and pelvis without contrast. Coronal 3-D reconstructions. Sagittal 2-D reconstructions. Date and time of exam:November 14, 2024 1149 hours INDICATIONS: Lower abdominal pain and pelvic pain beginning one month ago CTDI: vol (mGy): 7.59 DLP: (mGycm): 8 oh Technique: Axial images of the abdomen have been obtained, 3 mm slice thickness Intravenous contrast material has not been administered. Low dose protocols were performed. One or more of the following dose reduction techniques were used; automated exposure control, adjustment of the mA and/or KV according to patient size, use of iterative reconstruction technique. Findings: No visualized liver lesion Contracted gallbladder. Spleen is not enlarged No pancreatic or adrenal mass Perinephric stranding No renal or ureteral calculi, no hydronephrosis Aorta normal size No pericecal inflammatory change No bowel obstruction No diverticulitis Transverse prostate dimension 4.3 cm Intact urinary bladder Prominent osteopenia Advanced degenerative disc disease L5-S1 IMPRESSION: Perinephric stranding, consider urinary tract infection No renal or ureteral calculi, no hydronephrosis Normal appendix No bowel obstruction or diverticulitis Mild prostatomegaly
--- NOTE | 2024-11-14 09:43 | PD.EDRME ---
Rapid Medical Screening Exam RME Arrival date/time: 11/14/24 09:04 74-year-old male with no known medical history presents to the emergency room with a chief complaint of abdominal pain and nausea x 3 days I have greeted and performed a focused initial assessment of this patient. A comprehensive ED assessment and evaluation of the patient, analysis of all test results, and completion of the medical decision making process will be conducted by additional ED providers. Chief Complaint: Abdominal Pain Vital signs: Vital Signs Temperature 98.0 F 11/14/24 09:33 Pulse Rate 66 11/14/24 09:33 Respiratory Rate 18 11/14/24 09:33 Blood Pressure 144/67 H 11/14/24 09:33 Pulse Oximetry (%) 97 11/14/24 09:33 Oxygen Delivery Method Room Air 11/14/24 09:33 Vital signs reviewed by provider: Yes
[2024-11-14 10:40] LABS: Basophils # (Auto) 0.0 Thou/mm3 (0.0-0.2); Basophils % (Auto) 0 % (0-2.5); Eosinophils # (Auto) 0.2 Thou/mm3 (0.0-0.5); Eosinophils % (Auto) 2 % (0-10); Hematocrit 37.2 % (41.0-53.0); Hemoglobin 12.5 g/dL (13.5-16.0); Immature Granulocytes Auto 0.05 Thou/mm3 (0.00-0.00); Lymphocytes # (Auto) 1.7 Thou/mm3 (1.0-4.8); Lymphocytes % (Auto) 16 % (10-50); Mean Corpuscular HGB Conc 33.6 g/dl (31.0-37.0); Mean Corpuscular Hemoglobin 30.9 pg (25.0-35.0); Mean Corpuscular Volume 92 fL (80-100); Monocytes # (Auto) 0.8 Thou/mm3 (0.0-0.8); Monocytes % (Auto) 8 % (0-12); Neutrophils # (Auto) 7.9 Thou/mm3 (1.8-7.7); Neutrophils % (Auto) 74 % (37-80); Nucleated Red Blood Cell # 0.00 Thou/mm3 (0.00-0.00); Nucleated Red Blood Cell % 0 /100 WBC (0); Platelet Count 217 Thou/mm3 (140-440); RDW Standard Deviation 44.2 fL (35.1-43.9); Red Blood Count 4.04 Miln/mm3 (4.50-5.90); White Blood Count 10.8 Thou/mm3 (3.8-10.6)
[2024-11-14 10:58] LABS: B-Type Natriuretic Peptide < 20 pg/mL (0-100)
[2024-11-14 11:02] LABS: Alanine Aminotransferase 24 U/L (10-49); Albumin, Serum 4.0 gm/dL (3.4-4.8); Albumin/Globulin Ratio 1.4 (1.2-2.2); Alkaline Phosphatase 87 U/L (46-116); Amylase 138 U/L (30-118); Anion Gap 8 (7-16); Aspartate Amino Transferase 25 U/L (0-34); BUN/Creatinine Ratio 18 Ratio (12-20); Bilirubin,Total 0.4 mg/dL (0.3-1.2); Blood Urea Nitrogen 23 mg/dL (9-23); Calcium 9.5 mg/dL (8.3-10.6); Calcium (Corrected) 9.5 mg/dL (8.5-10.1); Carbon Dioxide 28.2 mMol/L (20.0-31.0); Chloride 105 mMol/L (98-107); Creatinine (Component) 1.3 mg/dL (0.6-1.3); Estimated Creatinine Clearance 46.6 mL/min (>60); Globulin 2.8 gm/dL (2.3-3.5); Glucose 105 mg/dL (74-106); Osmolality,Calculated 284 (275-295); Potassium 4.5 mMol/L (3.4-5.1); Sodium 141 mMol/L (136-145); Total Protein 6.8 gm/dL (5.7-8.2); Troponin I < 0.020 ng/mL (0.0-0.045); eGFR 57 See Note
[2024-11-14 11:24] LABS: Collection Type, Urine Clean Catch; Squamous Epithelial Cell,Urine 0 /hpf (0-5)
[2024-11-14 11:27] LABS: Bilirubin,Urine Negative (Negative); Blood,Urine Negative (Negative); Clarity,Urine Clear (Clear/Hazy); Color,Urine Colorless (Lt Yel-Yel); Culture Indicated,Urine Not Indicated; Glucose, Urine Negative (Negative); Ketones,Urine Negative (Negative); Leukocyte Esterase,Urine Negative (Negative); Nitrite,Urine Negative (Negative); PH,Urine 7.0 (5.0-7.0); Protein,Urine Negative (Neg - Trace); RBC,Urine < 1 /hpf (0-3); Specific Gravity,Urine 1.008 (1.001-1.035); Urobilinogen,Urine Negative mg/dL (0.0-1.0); WBC,Urine < 1 /hpf (0-5)
--- NOTE | 2024-11-14 12:53 | PD.EDADULT ---
ED General RME/HPI General Chief complaint: Abdominal Pain Stated complaint: ABD PAIN, 08/31 Time Seen by Provider: 11/14/24 12:53 Arrival date/time: 11/14/24 09:04 CC: Abdominal pain HPI ongoing for years, but worse in the past 4 days. When asked what caused the pain to start, the patient state he came here for medicine for his knee pain. Son produced the tablets which turned out to be prednisone and indomethacin. Son also noticed during the past 4 days the patient has not gotten any sleep. Patient is awake alert oriented nontoxic-appearing not in any acute distress. RME / HPI RME / HPI narrative: 11/14/24 09:04 74-year-old male with no known medical history presents to the emergency room with a chief complaint of abdominal pain and nausea x 3 days I have greeted and performed a focused initial assessment of this patient. A comprehensive ED assessment and evaluation of the patient, analysis of all test results, and completion of the medical decision making process will be conducted by additional ED providers. Related Data Home Medications ?Medication ?Instructions ?Recorded ?Confirmed ACETAMINOPHEN WITH CODEINE 1 - 2 tabs PO QPM ##0 03/04/10 (TYLENOL W/COD #3) Oxycodone Hcl/Acetaminophen * 1 tab PO TID ##0 03/04/10 (PERCOCET 7.5/325 *) Tramadol Hcl 50 mg PO TID ##0 03/04/10 lisinopril 10 mg tablet 10 mg PO DAILY ##0 03/04/10 meloxicam 15 mg tablet 15 mg PO DAILY ##0 03/04/10 Previous Rx's ?Medication ?Instructions ?Recorded amoxicillin 500 mg tablet 500 mg PO TID #21 tabs 02/23/22 ibuprofen 600 mg tablet 600 mg PO TID PRN pain #30 tabs 05/01/22 nirmatrelvir 300 mg (150 mg See Rx Instructions PO .COMPLEX 05/01/22 x2)-ritonavir 100 mg tablet,dose #30 tabs pack (Paxlovid) acetaminophen 325 mg tablet 325 mg PO QID #30 tabs 11/14/24 (Tylenol) acetaminophen 500 mg tablet 1,000 mg (2 x 500 mg) PO Q6H PRN 11/14/24 (Tylenol Extra Strength) pain #20 tabs Allergies Allergy/AdvReac Type Severity Reaction Status Date / Time No Known Allergies Allergy Verified 11/14/24 09:07 Review of Systems Review of Systems Narrative Review of Systems: GEN: No fever, no chills, no weight loss EYES: No discharge, no visual changes, no pain HEENT: No ear pain, no congestion, no sore throat PULM: No shortness of breath, no cough, no congestion CV: No chest pain, no dyspnea on exertion, no palpitations GI: No nausea, no vomiting, no diarrhea, + pain, no constipation : No frequency, no urgency, no dysuria MUSC/SKEL: No joint pain, no back pain SKIN: No rash PSYCH: No hallucinations, no depression HEME/LYMPH: No easy bleeding or bruising tendencies NEURO: No weakness, no headache ED Exam Narrative Physical exam: [General: Not in any acute distress Head normocephalic HEENT: Within acceptable limits Neck is supple nontender Chest equal chest rise nontender to palpation Respiratory: Clear to auscultation no wheezes crackles or rubs CV: Rate rhythm is regular no murmurs rubs or clicks Abdomen is distended secondary to body habitus soft nontender no masses positive bowel sounds all 4 quadrants Back: No CVA tenderness no spinous process tenderness from cervical spine thoracic and lumbar spine Skin: Intact no petechiae rash induration ulceration or crepitus Extremities: Moving all extremity against resistance cap refill less than 2 seconds neurosensory intact Neuro: Awake alert oriented x2, person and place, Glascow coma 15 no focal deficits] Course Course Course Narrative: After lengthy conversation with the son and the patient I suspect the patient's abdominal pain is secondary to prednisone into medicines taken without food. At this time we will discontinue both of those and start the patient on Tylenol for the knee pain he is to follow-up with his primary care doctor. There is no acute finding in the laboratory results or imaging Quality Measures none Orders Category Date Time Status EKG (ED ONLY) *Do not use* NOW Care 11/14/24 09:[address] abdomen pelvis wo con Stat Exams 11/14/24 09:42 Completed EKG (ED Only) Stat Exams 11/14/24 09:42 Draft Amylase Stat Lab 11/14/24 10:22 Completed B-Type Natriuretic Peptide Stat Lab 11/14/24 10:22 Completed CBC Stat Lab 11/14/24 10:22 Completed Comprehensive Metabolic Panel Stat Lab 11/14/24 10:22 Completed Troponin I Stat Lab 11/14/24 10:22 Completed Urinalysis, C/S if Indicated Stat Lab 11/14/24 11:15 Completed Vital Signs Vital signs: Vital Signs Temperature 98.0 F 11/14/24 09:33 Pulse Rate 66 11/14/24 09:33 Respiratory Rate 18 11/14/24 09:33 Blood Pressure 144/67 H 11/14/24 09:33 Pulse Oximetry (%) 97 11/14/24 09:33 Oxygen Delivery Method Room Air 11/14/24 09:33 Discharge Plan Plan Patient Disposition: HOME (Self Care) Patient condition on transfer: Stable Prescriptions/Referrals Prescriptions/Med Rec: New acetaminophen [Tylenol] 325 mg tablet 325 mg PO QID Qty: 30 0RF No Action ACETAMINOPHEN WITH CODEINE (TYLENOL W/COD #3) 1 TAB tablet 1 - 2 tabs PO QPM Qty: 0 meloxicam 15 MG tablet 15 mg PO DAILY Qty: 0 lisinopril 10 MG tablet 10 mg PO DAILY Qty: 0 Oxycodone Hcl/Acetaminophen * (PERCOCET 7.5/325 *) 1 TAB tablet 1 tab PO TID Qty: 0 Tramadol Hcl 50 MG tablet 50 mg PO TID Qty: 0 amoxicillin 500 mg tablet 500 mg PO TID Qty: 21 0RF acetaminophen [Tylenol Extra Strength] 500 mg tablet 1,000 mg PO Q6H PRN (Reason: pain) Qty: 20 0RF Paxlovid 300 mg (150 mg x 2)-100 mg tablets,dose pack See Rx Instructions .ROUTE .COMPLEX Qty: 30 0RF Rx Instructions: take TWO 150 mg tablets of nirmatrelvir with ONE 100 mg tablet of ritonavir twice daily for 5 days ibuprofen 600 mg tablet 600 mg PO TID PRN (Reason: pain) Qty: 30 0RF Referrals: Dk Valadez MD [Primary Care Provider, Family Practice] - In 1 week Problem List Clinical Impression: Abdominal pain Patient/Caregiver Discharge Instructions Other Activity Instructions:: Start taking the Tylenol for your knee pain. Avoid the steroids and indomethacin. Follow-up with your primary care doctor. If there is worsening of symptoms in spite of the medications return the emergency room immediately for further evaluation. Education Materials: Abdominal Pain Print Language: Japanese Stand Alone Forms: Janine Award Info., Patient Portal Info Letter, Work/School Release MARCOS/AKIKO Supervising Physician NASIR Supervising Physician: Rodrigo Perez ENP MDM Clinical Information Provided by: patient and family Medical Records reviewed [facility] Meds/Rx considered, not ordered None Labs/Rad/Tests considered, not ordered None Chronic Illness/Social Conditions Explain: None EKG EKG not done Labs Labs: interpreted by me Lab(s) Interpretation(s): CBC shows WBCs at 10.8 H&H of 12.5 and 37.2 respectively. Platelet count of 217. CMP shows no significant electrolyte imbalances renal impairment transaminitis or T. bili elevation Amylase at 138. Urine is negative for any acute finding Imaging Imaging interpretation: interpreted by me Imaging Interpretation(s): CT of the abdomen shows some perinephric stranding but no other acute finding as interpreted by me read by radiology. Medication Administration(s) none Diagnosis Differential Diagnosis ED Complaint MDM: UTI ileus obstruction
== END 2024-11-14 13:55 | disposition home or self-care (01) ==
PROVIDERS: Nurse Practitioner Family; Emergency Provider Emergency Medicine; PCP Family Medicine
DX: R10.9 Unspecified abdominal pain (principal); M25.569 Pain in unspecified knee
CPT/HCPCS: 36415; 74176; 80053; 81001; 82150; 83880; 84484; 85025; 93005; 99283

== ENCOUNTER 2024-11-14 21:00 | Emergency (ER) | payer MEDICARE, SELFPAY ==
[2024-11-14 21:17] VITALS: BP 141/71; PULSE 101; RESP 18; TEMP 37.1; O2SAT 97; BMI 28.3
--- NOTE | 2024-11-14 21:40 | XR_ITS ---
Examination: CT brain head without contrast. 2-D sagittal coronal reconstructions Date and time of exam:November 14, 2024 2153 hrs. Indications: Headache dizziness beginning 3 days ago CTDI: vol (mGy):51.5 DLP: (mGycm):1060 Technique: Multiple CT axial sections of the brain have been obtained, 5 mm slice thickness. Contrast has not been administered. 2-D sagittal, coronal reconstructions have been obtained Low dose protocols were performed. One or more of the following dose reduction techniques were used; automated exposure control, adjustment of the mA and/or KV according to patient size, use of iterative reconstruction technique. Findings: No significant ventricular enlargement. Intra-axial or extra-axial hemorrhage density is not seen. No mass effect or midline shift Basal cisterns are not remarkable. Fourth ventricle is midline. Cranial vault intact. Impression: Negative for acute hemorrhage, mass effect or midline shift
--- NOTE | 2024-11-14 21:40 | PD.EDRME ---
Rapid Medical Screening Exam RME Arrival date/time: 11/14/24 21:00 74M with history of HTN presents to ED with 3 days of HOROWITZ, body aches, fevers/chills/paresthesia, and dizziness, as well as insomnia. This is patient's 3rd visit for this. Chief Complaint: General Adult/Misc Complain Vital signs: Vital Signs Temperature 98.8 F 11/14/24 21:17 Pulse Rate 101 H 11/14/24 21:17 Respiratory Rate 18 11/14/24 21:17 Blood Pressure 141/71 H 11/14/24 21:17 Pulse Oximetry (%) 97 11/14/24 21:17 Oxygen Delivery Method Room Air 11/14/24 21:17
[2024-11-14 22:35] LABS: Influenza A Ag Negative; Influenza B Ag Negative
[2024-11-14 22:49] VITALS: BP 140/97; PULSE 90; RESP 19; O2SAT 96
--- NOTE | 2024-11-14 22:51 | PD.EDADULT ---
ED General RME/HPI General Chief complaint: General Adult/Misc Complain Stated complaint: HEADACHE,BODYACHES, NOT SLEEPING Arrival date/time: 11/14/24 21:00 RME / HPI RME / HPI narrative: 11/14/24 21:00 74M with history of HTN presents to ED with 3 days of HOROWITZ, body aches, fevers/chills/paresthesia, and dizziness, as well as insomnia. This is patient's 3rd visit for this. --------- Dr. Ramírez?s Main ED Evaluation: 74yo male presents to the ED for complaints of difficulty sleeping, generalized itching to both of his arms, and subjective fever for the last 3 days. Patient has not been sleeping for the last 3 days and his family member is concerned. Denies any other associated symptoms. NKA. Related Data Home Medications ?Medication ?Instructions ?Recorded ?Confirmed ACETAMINOPHEN WITH CODEINE 1 - 2 tabs PO QPM ##0 03/04/10 (TYLENOL W/COD #3) Oxycodone Hcl/Acetaminophen * 1 tab PO TID ##0 03/04/10 (PERCOCET 7.5/325 *) Tramadol Hcl 50 mg PO TID ##0 03/04/10 lisinopril 10 mg tablet 10 mg PO DAILY ##0 03/04/10 meloxicam 15 mg tablet 15 mg PO DAILY ##0 03/04/10 Previous Rx's ?Medication ?Instructions ?Recorded amoxicillin 500 mg tablet 500 mg PO TID #21 tabs 02/23/22 ibuprofen 600 mg tablet 600 mg PO TID PRN pain #30 tabs 05/01/22 nirmatrelvir 300 mg (150 mg See Rx Instructions PO .COMPLEX 05/01/22 x2)-ritonavir 100 mg tablet,dose #30 tabs pack (Paxlovid) acetaminophen 325 mg tablet 325 mg PO QID #30 tabs 11/14/24 (Tylenol) acetaminophen 500 mg tablet 1,000 mg (2 x 500 mg) PO Q6H PRN 11/14/24 (Tylenol Extra Strength) pain #20 tabs lorazepam 2 mg tablet (Ativan) 2 mg PO TID PRN agitation #10 tabs 11/14/24 Allergies Allergy/AdvReac Type Severity Reaction Status Date / Time No Known Allergies Allergy Verified 11/14/24 21:01 Review of Systems Review of Systems Systems Reviewed: All systems reviewed, normal except as documented Past Medical History Past Medical History CARDIAC: Negative Hypercholesterolemia, Congestive Heart Failure or Hypertension RESPIRATORY: Negative Chronic Obstructive Pulmonary Disease (COPD) GENITOURINARY: Positive Benign Prostatic Hyperplasia; Negative Renal Disease ENDOCRINE: Negative Diabetes Mellitus Type 1 or Diabetes Mellitus Type 2 OTHER HISTORY: Positive Falls Social History SMOKING STATUS: Never smoker ED Exam Narrative Physical exam: Generally patient is alert somewhat agitated, head is normocephalic atraumatic, eyes pupils equal round reactive to light, neck shows no bruits, heart regular rate and rhythm, lungs clear to auscultation and equal bilaterally, abdomen soft bowel sounds present and nontender, neurologic exam no focal motor deficits and the patient obeys commands and is oriented to person and place. Course Quality Measures none Orders Category Date Time Status Bedside COVID-19 Antigen Test NOW Care 11/14/24 21:[address] head/brain wo con Stat Exams 11/14/24 21:40 Completed Influenza A & B Rapid Panel Stat Lab 11/14/24 22:00 Completed LORazepam [Ativan] Med 11/14/24 23:16 Discontinued 1 mg PO X1 ONE LORazepam [Ativan] Med 11/14/24 22:59 Discontinued 2 mg PO X1 ONE Vital Signs Vital signs: Vital Signs Temperature 98.8 F 11/14/24 21:17 Pulse Rate 101 H 11/14/24 21:17 Respiratory Rate 18 11/14/24 21:17 Blood Pressure 141/71 H 11/14/24 21:17 Pulse Oximetry (%) 97 11/14/24 21:17 Oxygen Delivery Method Room Air 11/14/24 21:17 Discharge Plan Plan Patient Disposition: HOME (Self Care) Prescriptions/Referrals Prescriptions/Med Rec: New lorazepam [Ativan] 2 mg tablet 2 mg PO TID PRN (Reason: agitation) Qty: 10 0RF No Action ACETAMINOPHEN WITH CODEINE (TYLENOL W/COD #3) 1 TAB tablet 1 - 2 tabs PO QPM Qty: 0 meloxicam 15 MG tablet 15 mg PO DAILY Qty: 0 lisinopril 10 MG tablet 10 mg PO DAILY Qty: 0 Oxycodone Hcl/Acetaminophen * (PERCOCET 7.5/325 *) 1 TAB tablet 1 tab PO TID Qty: 0 Tramadol Hcl 50 MG tablet 50 mg PO TID Qty: 0 amoxicillin 500 mg tablet 500 mg PO TID Qty: 21 0RF acetaminophen [Tylenol Extra Strength] 500 mg tablet 1,000 mg PO Q6H PRN (Reason: pain) Qty: 20 0RF Paxlovid 300 mg (150 mg x 2)-100 mg tablets,dose pack See Rx Instructions .ROUTE .COMPLEX Qty: 30 0RF Rx Instructions: take TWO 150 mg tablets of nirmatrelvir with ONE 100 mg tablet of ritonavir twice daily for 5 days ibuprofen 600 mg tablet 600 mg PO TID PRN (Reason: pain) Qty: 30 0RF acetaminophen [Tylenol] 325 mg tablet 325 mg PO QID Qty: 30 0RF Referrals: Js Talley MD [Primary Care Provider, Family Practice] - In 1 week Problem List Clinical Impression: Agitation, Insomnia Patient/Caregiver Discharge Instructions Education Materials: ED Insomnia Additional Instructions: Take the Ativan as prescribed. Keep your follow-up appointment with your regular doctor in 2 days. Print Language: Arabic Stand Alone Forms: Janine Award Info., Patient Portal Info Letter MDM Narrative MDM hospital course (for use when minimal MDM required): Scribe Attestation: 11/14/24 - Indu Vazquez am scribing for and in the presence of Dr. Ramírez. I interpreted all labs. Patient has been seen and evaluated several times over the last several days with multiple complaints ranging from abdominal pain to shortness of breath and now agitation. According the patient's son who is at bedside the patient has not slept for [address] is negative. Earlier in the day patient had CT scan done the abdomen and pelvis which was unremarkable. I reviewed all previous blood work. Nothing was remarkable. I gave the patient Ativan 2 mg p.o. with benefit here in the emergency room. He will be given a limited number, #10, of Ativan to be used at home for agitation. In 2 days they have an appointment with the patient's primary care physician. According to the patient's son the patient was okay several days ago. He has not had fever. He has no nuchal rigidity. No leukocytosis. I do not believe this patient had meningitis. The history is not compatible with dementia. Clinical Information Provided by: patient Medical Records reviewed [facility] (Per chart review, patient was seen here earlier today for abdominal pain.) Meds/Rx considered, not ordered None Labs/Rad/Tests considered, not ordered None Chronic Illness/Social Conditions Explain: Hx BPH EKG EKG not done Labs Labs: interpreted by me Imaging Imaging interpretation: interpreted by me Imaging Interpretation(s): [place] [facility] Report Signed Patient: MARTÍNEZ HERNANDEZ Record#: [id number] Birthdate: 1950 Age/Sex: 74 / M Location: [facility] Attending Dr: Ordering Physician: Nael Conley PA-C Date of Service: 11/14/24 Procedure(s): CT head/brain wo con Accession Number(s): [id number] cc: Js Talley MD; Cristian Ortega MD; Nael Conley PA-C~ Examination: CT brain head without contrast. 2-D sagittal coronal reconstructions Date and time of exam:November 14, 2024 2153 hrs. Indications: Headache dizziness beginning 3 days ago CTDI: vol (mGy):51.5 DLP: (mGycm):1060 Technique: Multiple CT axial sections of the brain have been obtained, 5 mm slice thickness. Contrast has not been administered. 2-D sagittal, coronal reconstructions have been obtained Low dose protocols were performed. One or more of the following dose reduction techniques were used; automated exposure control, adjustment of the mA and/or KV according to patient size, use of iterative reconstruction technique. Findings: No significant ventricular enlargement. Intra-axial or extra-axial hemorrhage density is not seen. No mass effect or midline shift Basal cisterns are not remarkable. Fourth ventricle is midline. Cranial vault intact. Impression: Negative for acute hemorrhage, mass effect or midline shift Dictated By: Cristian Ortega MD Signed By: <Electronically signed by Cristian Ortega MD in [place]> 11/14/24 2211 Medication Administration(s) Medication Administration History Discontinued Medications Lorazepam (Lorazepam 0.5 Mg Tablet) 2 mg PO X1 ONE Stop: 11/14/24 23:00 Last Admin: 11/14/24 23:25 Dose: 2 mg Documented By: Lorazepam (Lorazepam 0.5 Mg Tablet) 1 mg PO X1 ONE Stop: 11/14/24 23:17 Last Admin: 11/14/24 23:25 Dose: Not Given Documented By: SM Non-Admin Reason: Other, see note see above
--- NOTE | 2024-11-14 23:27 | PC.NURSE ---
2MG OF ATIVAN ORDERED. THIS NURSE ONLY PULLED 1MG OF ATIVAN INITIALLY. SENIOR IT AUDITOR NOTIFIED. PROVIDER WAS NOTIFIED. NEW ORDER OF 1MG OF ATIVAN WAS ORDERED. THIS RN WITH SENIOR IT AUDITOR PULLED ATIVAN. 1MG OF ATIVAN (2TABS) WERE RETURNED, WITNESSED BY SENIOR IT AUDITOR. WILL CALL PHARMACY IN THE MORNING. PATIENT GOT A TOTAL OF 2MG OF ATIVAN (4TABS).
== END 2024-11-14 23:55 | disposition home or self-care (01) ==
PROVIDERS: Physician Assistant; Emergency Provider Emergency Medicine; PCP Family Medicine
DX: R45.1 Restlessness and agitation (principal); G47.00 Insomnia, unspecified; R51.9 Headache, unspecified; I10 Essential (primary) hypertension
CPT/HCPCS: 70450; 87502; 87811; 99283; A9270

== ENCOUNTER 2024-12-02 01:29 | Emergency (ER) | payer MEDICARE, SELFPAY ==
[2024-12-02 01:30] VITALS: BMI 27.4
[2024-12-02 01:37] VITALS: BP 132/69; PULSE 87; RESP 19; TEMP 36.7; O2SAT 98
--- NOTE | 2024-12-02 01:58 | XR_ITS ---
Examination: CT cervical spine without contrast 2-D sagittal reconstructions 2-D coronal reconstructions 3-D reconstructions. Exam date and time: December 02, 2024, 0213 hours INDICATIONS: Onset severe neck pain today CTDI:vol (mGy) 15.36 DLP: (mGycm) 319 Technique: Multiple 2 mm axial sections of the cervical spine have been obtained. The coronal and sagittal reconstructions have been obtained. 3-D reconstructions have been obtained. Low dose protocols were performed. One or more of the following dose reduction techniques were used; automated exposure control, adjustment of the mA and/or KV according to patient size, use of iterative reconstruction technique. Findings: Axial sections demonstrate intact base of the skull. C1 exhibit satisfactory relationship to the odontoid. No acute cervical vertebral body fracture seen. Alignment posterior spinous processes satisfactory. Advanced degenerative disc disease C5-C6 C3-C4 advanced right neural foraminal stenosis C4-C5 advanced left neuroforaminal stenosis C5-C6 2 mm central osteophyte disc complex, moderate bilateral neuroforaminal stenosis Impression: No acute cervical fracture. Advanced degenerative disc disease C5-C6 C3-C4 advanced right neuroforaminal stenosis C4-C5 there is left neuroforaminal stenosis C5-C6 moderate bilateral neuroforaminal stenosis As clinically warranted, MRI cervical spine without contrast follow-up would be preferable in assessing full extent of acquired soft tissue spinal stenosis
[2024-12-02] MEDS: BACLOFEN 10 MG TABLET PO (02:36)
--- NOTE | 2024-12-02 02:36 | EDNOTE_ITS ---
ED Neck Injury Pain RME/HPI General Chief Complaint: Headache Stated Complaint: NECK PAIN, HEADACHE Time Seen by Provider: 12/02/24 01:57 Arrival date/time: 12/02/24 01:29 74M with history of HTN presents to ED with son for atraumatic neck pain/stiffness. Patient denies headache. Son/patient believe he overused his neck, which is why he has pain/stiffness. Patient denies fevers/chills, AMS, seizures, N/V, and vision changes. Patient agrees behavior/speech is baseline. Limitations: no limitations Related Data Home Medications ?Medication ?Instructions ?Recorded ?Confirmed ACETAMINOPHEN WITH CODEINE 1 - 2 tabs PO QPM ##0 03/04 (TYLENOL W/COD #3) Oxycodone Hcl/Acetaminophen * 1 tab PO TID ##0 1 (PERCOCET 7.5/325 *) Tramadol Hcl 50 mg PO TID ##0 03/04/10 lisinopril 10 mg tablet 10 mg PO DAILY ##0 03/04/10 meloxicam 15 mg tablet 15 mg PO DAILY ##0 03/04/10 Previous Rx's ?Medication ?Instructions ?Recorded amoxicillin 500 mg tablet 500 mg PO TID #21 tabs 02/23 ibuprofen 600 mg tablet 600 mg PO TID PRN pain #30 t abs 05/01/22 nirmatrelvir 300 mg (150 mg See Rx Instructions PO .CO MPLEX 05/01/22 x2)-ritonavir 100 mg tablet,dose #30 tabs pack (Paxlovid) acetaminophen 325 mg tablet 325 mg PO QID #30 tabs (Tylenol) acetaminophen 500 mg tablet 1,000 mg (2 x 500 mg) PO Q 6H PRN 11/14/24 (Tylenol Extra Strength) pain #20 tabs lorazepam 2 mg tablet (Ativan) 2 mg PO TID PRN agitati on #10 tabs 11/14/24 baclofen 5 mg tablet 5 mg PO BID PRN muscle spasm #14 12/02/24 tabs Allergies Allergy/AdvReac Type Severity Reaction Status Date / Time No Known Allergies Allergy Verified 12/02/24 01:30 Review of Systems Review of Systems Systems Reviewed: All systems reviewed, normal except as documented ENT Ears, Nose, Mouth, and Throat: Reports neck pain Musculoskeletal Musculoskeletal: Reports as per HPI and Reports neck pain Past Medical History Past Medical History CARDIAC: Negative Hypercholesterolemia, Congestive Heart Failure or Hypertension RESPIRATORY: Negative Chronic Obstructive Pulmonary Disease (COPD) GENITOURINARY: Positive Benign Prostatic Hyperplasia; Negative Renal Disease ENDOCRINE: Negative Diabetes Mellitus Type 1 or Diabetes Mellitus Type 2 OTHER HISTORY: Positive Falls Social History SMOKING STATUS: Never smoker ED Exam General Limitations: Present no limitations General appearance: Present alert and in no apparent distress Head Head exam: Present atraumatic Eye Eye exam: Present normal appearance, PERRL and EOMI Neck Neck exam: Present trachea midline and tenderness Chest Chest inspection: Present normal inspection and symmetric chest wall rise Neurological Exam Neurological exam: Present alert and oriented X3 Psychiatric Psychiatric exam: Present normal affect and normal mood Skin Skin exam: Present warm, dry, intact and normal color Course Quality Measures none Orders Category Date Time Status CT cervical spine wo con Stat Exams 12/02/24 01:58 Taken Baclofen [Lioresal] Med 12/02/24 01:58 Discontinued 10 mg PO X1 ONE Vital Signs Vital signs: Vital Signs Temperature 98.1 F 12/02/24 01:37 Pulse Rate 87 12/02/24 01:37 Respiratory Rate 19 12/02/24 01:37 Blood Pressure 132/69 H 12/02/24 01:37 Pulse Oximetry (%) 98 12/02/24 01:37 Oxygen Delivery Method Room Air 12/02/24 01:37 O2 at 98% on RA and WNLs Neck Pain MDM Narrative MDM Narrative:: 74M with history of HTN presents to ED with son for atraumatic neck pain/stiffness. Patient denies headache. Son/patient believe he overused his neck, which is why he has pain/stiffness. Patient denies fevers/chills, AMS, seizures, N/V, and vision changes. Patient agrees behavior/speech is baseline. Physical exam reveal normal pupil response and EOM. Speech normal. Gait normal. Some midline back tenderness. ROM of neck limited. Patient is afebrile, calm, and alert. Telerad CT unremarkable. Muscle relaxer improved symptoms. [employer] given. Patient data External records reviewed:: [facility] previous records Clinical information provided by:: patient Social determinants that could affect healthcare access:: none Patient has the following chronic illnesses:: HTN How is presenting disease/condition affected by chronic disease/condition?: uneffected by Evaluation data The following diagnostics were reviewed and interpreted by me:: radiology exam(s) Lab and/or radiology exams considered but not ordered:: ordered Interpretation Summary: above Medications / Prescriptions Medications or Prescriptions considered but not ordered:: ordered Medication administrations:: Medication Administration History Discontinued Medications Baclofen (Baclofen 10 Mg Tablet) 10 mg PO X1 ONE Stop: 12/02/24 01:59 Last Admin: 12/02/24 02:36 Dose: 10 mg Documented By: MC above Consultations Consultation(s) initiated? (list below): No Diagnosis Neck Differential Diagnosis: disc disorder of cervical region, whiplash injury to neck, closed subluxation of cervical spine, fracture of cervical spine without lesion of spinal cord, cervical radiculopathy, vertebral artery dissection, torticollis, cervical spondylosis, strain of neck muscle and other (neck pain) Most likely diagnosis given after review of the tests above:: neck pain Admission Indicated Admission indicated?: not indicated Admission Request Was there a request for admission?: No Disposition Plan Disposition Plan: Discharge Discharge Attestation Discharge Attestation: The patient and all family members were given an opportunity to ask questions and understood the discharge instructions. Discharge instructions specifically effects, indications for sooner follow up or return to the emergency department, and the expected course of current diagnosis. Patient condition: Stable Discharge Plan Plan Patient Disposition: HOME (Self Care) Discharge Disposition comment: Stable Prescriptions/Referrals Prescriptions/Med Rec: New baclofen 5 mg tablet 5 mg PO BID PRN (Reason: muscle spasm) Qty: 14 0RF No Action ACETAMINOPHEN WITH CODEINE (TYLENOL W/COD #3) 1 TAB tablet 1 - 2 tabs PO QPM Qty: 0 meloxicam 15 MG tablet 15 mg PO DAILY Qty: 0 lisinopril 10 MG tablet 10 mg PO DAILY Qty: 0 Oxycodone Hcl/Acetaminophen * (PERCOCET 7.5/325 *) 1 TAB tablet 1 tab PO TID Qty: 0 Tramadol Hcl 50 MG tablet 50 mg PO TID Qty: 0 amoxicillin 500 mg tablet 500 mg PO TID Qty: 21 0RF acetaminophen [Tylenol Extra Strength] 500 mg tablet 1,000 mg PO Q6H PRN (Reason: pain) Qty: 20 0RF lorazepam [Ativan] 2 mg tablet 2 mg PO TID PRN (Reason: agitation) Qty: 10 0RF Paxlovid 300 mg (150 mg x 2)-100 mg tablets,dose pack See Rx Instructions .ROUTE .COMPLEX Qty: 30 0RF Rx Instructions: take TWO 150 mg tablets of nirmatrelvir with ONE 100 mg tablet of ritonavir twice daily for 5 days ibuprofen 600 mg tablet 600 mg PO TID PRN (Reason: pain) Qty: 30 0RF acetaminophen [Tylenol] 325 mg tablet 325 mg PO QID Qty: 30 0RF Referrals: Benny Lopez PA-C [Primary Care Provider] - In 1 week Problem List Clinical Impression: Neck pain Patient/Caregiver Discharge Instructions Additional Instructions: Please follow-up with PCP within 24-48 hours and return immediately if symptoms worsen. If problem persists, recommend outpatient PT and/or MRI follow-up. In the meantime, rest, use ice/heat, and/or compression. NSAIDs like ibuprofen tend to work better for this type of pain. Print Language: Singaporean Stand Alone Forms: Patient Portal Info Letter MARCOS/AKIKO Supervising Physician NASIR Supervising Physician: Dr. Pool
--- NOTE | 2024-12-02 02:41 | PRELIM_ITS ---
CT scan of the cervical spine without intravenous contrast (axial sections with sagittal and coronal reformats). December 02, 2024 at 0213 hours Clinical History: Atraumatic neck pain Comparison: No prior study is available for comparison. Findings: There is no fracture or subluxation. The prevertebral soft tissues are unremarkable. Degenerative changes of the imaged portions of the spine. Chronic multilevel disc disease. No acute fractures. Loss of the physiologic cervical lordosis. Impression: 1. No evidence of fracture or subluxation. 2. Loss of the physiologic cervical lordosis. Report Electronically Signed By: London Silveira 12/02/2024 2:40:57 AM [EST]
[2024-12-02 03:06] VITALS: BP 143/74; PULSE 65; RESP 17; TEMP 37; O2SAT 97
== END 2024-12-02 03:11 | disposition home or self-care (01) ==
PROVIDERS: Emergency Provider Emergency Medicine; PCP Physician Assistant
DX: M54.2 Cervicalgia (principal); I10 Essential (primary) hypertension
CPT/HCPCS: 72125; 99283; A9270

== ENCOUNTER 2024-12-28 20:30 | Emergency (ER) | payer MEDICARE, SELFPAY ==
[2024-12-28 21:19] VITALS: BP 150/79; PULSE 67; RESP 18; TEMP 36.6; O2SAT 95
--- NOTE | 2024-12-28 21:24 | PD.EDRME ---
Rapid Medical Screening Exam E Arrival date/time: 12/28/24 20:30 Chief Complaint: Abdominal Pain Time Seen by Provider: 12/28/24 21:11 Vital signs: Vital Signs Temperature 98 F 12/28/24 21:19 Pulse Rate 67 12/28/24 21:19 Respiratory Rate 18 12/28/24 21:19 Blood Pressure 150/79 H 12/28/24 21:19 Pulse Oximetry (%) 95 12/28/24 21:19 Oxygen Delivery Method Room Air 12/28/24 21:19 E Narrative: Constipation x 3 days. Recently started taking Suboxone Exam: Well-appearing, no acute distress. Abdomen nontender Clinical Impression: Constipation
--- NOTE | 2024-12-28 21:25 | XR_ITS ---
Examination: Abdomen AP single view Technique: AP portable supine abdomen, single view Exam date and time: December 28, 2024, 2145 hours INDICATIONS: Abdominal pain with constipation beginning 3 days ago. FINDINGS: Moderate to large amount of stool throughout the colon No obstruction. No free air. No abnormal calcific densities IMPRESSION: Moderate to large amount of stool throughout the colon
[2024-12-28 22:54] VITALS: BMI 28.6
--- NOTE | 2024-12-28 22:56 | PD.EDABDPN ---
ED Abdominal Pain RME/HPI General Chief Complaint: Abdominal Pain Stated complaint: CONSTIPATION X3 DAYS Time seen by provider: 12/28/24 21:11 Arrival date/time: 12/28/24 20:30 RME / HPI RME / HPI narrative: Constipation x 3 days. Recently started taking Suboxone Dr. Ramírez?s Main ED Evaluation: 74yo male presents to the ED for complaints of constipation and abdominal pain. Patient started taking Suboxone 4 days ago and has since developed constipation, reporting he's had worsening abdominal pain. Patient denies any N/V, fever, chills, or any other associated symptoms. NKA. Related Data Home Medications ?Medication ?Instructions ?Recorded ?Confirmed ACETAMINOPHEN WITH CODEINE 1 - 2 tabs PO QPM ##0 03/04/10 (TYLENOL W/COD #3) Oxycodone Hcl/Acetaminophen * 1 tab PO TID ##0 03/04/10 (PERCOCET 7.5/325 *) Tramadol Hcl 50 mg PO TID ##0 03/04/10 lisinopril 10 mg tablet 10 mg PO DAILY ##0 03/04/10 meloxicam 15 mg tablet 15 mg PO DAILY ##0 03/04/10 Previous Rx's ?Medication ?Instructions ?Recorded amoxicillin 500 mg tablet 500 mg PO TID #21 tabs 02/23/22 ibuprofen 600 mg tablet 600 mg PO TID PRN pain #30 tabs 05/01/22 nirmatrelvir 300 mg (150 mg See Rx Instructions PO .COMPLEX 05/01/22 x2)-ritonavir 100 mg tablet,dose #30 tabs pack (Paxlovid) acetaminophen 325 mg tablet 325 mg PO QID #30 tabs 11/14/24 (Tylenol) acetaminophen 500 mg tablet 1,000 mg (2 x 500 mg) PO Q6H PRN 11/14/24 (Tylenol Extra Strength) pain #20 tabs lorazepam 2 mg tablet (Ativan) 2 mg PO TID PRN agitation #10 tabs 11/14/24 baclofen 5 mg tablet 5 mg PO BID PRN muscle spasm #14 12/02/24 tabs peg 3350-electrolytes 236 240 ml PO Q10M #4,000 mL 12/28/24 gram-22.74 gram-6.74 gram-5.86 gram solution (Golytely) Allergies Allergy/AdvReac Type Severity Reaction Status Date / Time No Known Allergies Allergy Verified 12/02/24 01:30 Review of Systems Review of Systems Systems Reviewed: All systems reviewed, normal except as documented Past Medical History Past Medical History CARDIAC: Negative Hypercholesterolemia, Congestive Heart Failure or Hypertension RESPIRATORY: Negative Chronic Obstructive Pulmonary Disease (COPD) GENITOURINARY: Positive Benign Prostatic Hyperplasia; Negative Renal Disease ENDOCRINE: Negative Diabetes Mellitus Type 1 or Diabetes Mellitus Type 2 OTHER HISTORY: Positive Falls Social History SMOKING STATUS: Never smoker ED Exam Narrative Physical exam: Generally patient is alert and in no obvious distress, heart regular rate and rhythm, lungs clear to auscultation equal bilaterally, abdomen is soft nondistended nontender currently. Bowel sounds seem to be hypoactive., Skin is warm pale and dry, neurologic exam shows Elie Coma Scale of 15 without focal motor deficit Course Quality Measures none Orders Category Date Time Status Enema Administration NOW Care 12/28/24 22:32 Active KUB [XR abdomen 1V] Stat Exams 12/28/24 21:25 Completed Vital Signs Vital signs: Vital Signs Temperature 98 F 12/28/24 21:19 Pulse Rate 67 12/28/24 21:19 Respiratory Rate 18 12/28/24 21:19 Blood Pressure 150/79 H 12/28/24 21:19 Pulse Oximetry (%) 95 12/28/24 21:19 Oxygen Delivery Method Room Air 12/28/24 21:19 Abdominal Pain MDM MDM Narrative MDM Narrative:: Scribe Attestation: 12/28/24 - Indu Vazquez am scribing for and in the presence of Dr. Ramírez. Upfront a KUB was ordered which showed stool throughout the colon. No obstruction. No free air. Patient received a fleets enema here in the emergency room. He will be discharged on GoLytely to be taken as prescribed. A problem exists that the patient is currently on Suboxone which is contributing to the constipation. Patient was encouraged to contact primary care for GI referral. Patient data External records reviewed:: [facility] previous records (Per chart review, patient was seen here on 12/02/24 for neck pain.) Clinical information provided by:: patient Social determinants that could affect healthcare access:: none Patient has the following chronic illnesses:: none How is presenting disease/condition affected by chronic disease/condition?: no chronic disease Evaluation data The following diagnostics were reviewed and interpreted by me:: radiology exam(s) Lab and/or radiology exams considered but not ordered:: none Interpretation Summary: [facility] Report Signed Patient: MARTÍNEZ HERNANDEZ Record#: [id number] Birthdate: 1950 Age/Sex: 74 / M Location: [facility] Attending Dr: Ordering Physician: Jayro Pearson PA-C Date of Service: 12/28/24 Procedure(s): XR abdomen 1V Accession Number(s): [id number] cc: Cristian Ortega MD; Jayro Pearson PA-C~ Examination: Abdomen AP single view Technique: AP portable supine abdomen, single view Exam date and time: December 28, 2024, 2146 hours INDICATIONS: Abdominal pain with constipation beginning 3 days ago. FINDINGS: Moderate to large amount of stool throughout the colon No obstruction. No free air. No abnormal calcific densities IMPRESSION: Moderate to large amount of stool throughout the colon Dictated By: Cristian Ortega MD Signed By: <Electronically signed by Cristian Ortega MD in OV> 12/28/24 2306 Medications / Prescriptions Medications or Prescriptions considered but not ordered:: none Medication administrations:: see above, if any Consultations Consultation(s) initiated? (list below): No Diagnosis Differential diagnosis abdominal pain: other (See MDM) Most likely diagnosis given after review of the tests above:: see clinical impression below Admission Indicated Admission indicated?: not indicated Admission Request Was there a request for admission?: No Disposition Plan Disposition Plan: Discharge Discharge Attestation Discharge Attestation: The patient and all family members were given an opportunity to ask questions and understood the discharge instructions. Discharge instructions specifically effects, indications for sooner follow up or return to the emergency department, and the expected course of current diagnosis. Patient condition: Stable Discharge Plan Plan Patient Disposition: HOME (Self Care) Prescriptions/Referrals Prescriptions/Med Rec: New peg 3350-electrolytes [Golytely] 236-22.74-6.74 -5.86 gram recon soln 240 ml PO Q10M Qty: 4000 0RF Rx Instructions: until fecal effluent is clear No Action ACETAMINOPHEN WITH CODEINE (TYLENOL W/COD #3) 1 TAB tablet 1 - 2 tabs PO QPM Qty: 0 meloxicam 15 MG tablet 15 mg PO DAILY Qty: 0 lisinopril 10 MG tablet 10 mg PO DAILY Qty: 0 Oxycodone Hcl/Acetaminophen * (PERCOCET 7.5/325 *) 1 TAB tablet 1 tab PO TID Qty: 0 Tramadol Hcl 50 MG tablet 50 mg PO TID Qty: 0 amoxicillin 500 mg tablet 500 mg PO TID Qty: 21 0RF acetaminophen [Tylenol Extra Strength] 500 mg tablet 1,000 mg PO Q6H PRN (Reason: pain) Qty: 20 0RF lorazepam [Ativan] 2 mg tablet 2 mg PO TID PRN (Reason: agitation) Qty: 10 0RF Paxlovid 300 mg (150 mg x 2)-100 mg tablets,dose pack See Rx Instructions .ROUTE .COMPLEX Qty: 30 0RF Rx Instructions: take TWO 150 mg tablets of nirmatrelvir with ONE 100 mg tablet of ritonavir twice daily for 5 days ibuprofen 600 mg tablet 600 mg PO TID PRN (Reason: pain) Qty: 30 0RF acetaminophen [Tylenol] 325 mg tablet 325 mg PO QID Qty: 30 0RF baclofen 5 mg tablet 5 mg PO BID PRN (Reason: muscle spasm) Qty: 14 0RF Problem List Clinical Impression: Constipation Patient/Caregiver Discharge Instructions Education Materials: ED Constipation (Adult) Additional Instructions: Use the GoLytely as prescribed. Follow-up with your doctor for GI referral. Print Language: Telugu Stand Alone Forms: Janine Award Info., Patient Portal Info Letter
[2024-12-28 23:25] VITALS: BP 159/51; PULSE 63; RESP 18; TEMP 36.8; O2SAT 95
== END 2024-12-28 23:25 | disposition home or self-care (01) ==
LOC: SERX 23:44
PROVIDERS: Emergency Provider Emergency Medicine
DX: K59.00 Constipation, unspecified (principal)
CPT/HCPCS: 74018; 99282

== ENCOUNTER 2025-01-04 23:23 | Emergency (ER) | payer MEDICARE, SELFPAY ==
[2025-01-05 00:01] VITALS: BP 126/67; PULSE 67; RESP 18; TEMP 36.8; O2SAT 97; BMI 27.6
--- NOTE | 2025-01-05 01:07 | XR_ITS ---
Examination: CT abdomen and pelvis without contrast. Coronal 3-D reconstructions. Sagittal 2-D reconstructions. Date and time of exam: January 05, 2025, 0120 hours INDICATIONS: Abdominal pain and constipation today COMPARISON: 11/14/2024 CTDI: vol (mGy): 7.30 DLP: (mGycm): 442 Technique: Axial images of the abdomen have been obtained, 3 mm slice thickness Intravenous contrast material has not been administered. Low dose protocols were performed. One or more of the following dose reduction techniques were used; automated exposure control, adjustment of the mA and/or KV according to patient size, use of iterative reconstruction technique. Findings: No visualized liver or splenic lesion No gallstones No pancreatic or adrenal mass Perinephric stranding, no hydronephrosis or ureteral calculi Aorta normal size No bowel obstruction Normal appendix No diverticulitis Distended urinary bladder Transverse prostate dimension 4.4 cm Intact urinary bladder Advanced degenerative disc disease L5-S1 IMPRESSION: Perinephric stranding, consider urinary tract infection
--- NOTE | 2025-01-05 01:08 | XR_ITS ---
Abdomen sonogram limited TECHNIQUE: Limited transabdominal sonographic images pelvis Date and time: January 05, 2025, 0153 hours INDICATIONS: Right upper abdominal pain and tenderness today. FINDINGS: Normal gallbladder Normal common bile duct 0.3 cm Pancreatic head 2.7 cm Liver 12.5 cm irregular contour fatty infiltration Normal hepatopetal portal venous flow Patent IVC IMPRESSION: Primary hepatocellular disease
--- NOTE | 2025-01-05 01:09 | PD.EDABDPN ---
ED Abdominal Pain RME/HPI General Chief Complaint: Abdominal Pain Stated complaint: constipation since last visit Arrival date/time: 01/04/25 23:23 RME / HPI RME / HPI narrative: See [facility] for Dr. Olivares's HPI Documentation. Related Data Home Medications ?Medication ?Instructions ?Recorded ?Confirmed ACETAMINOPHEN WITH CODEINE 1 - 2 tabs PO QPM ##0 03/04/10 (TYLENOL W/COD #3) Oxycodone Hcl/Acetaminophen * 1 tab PO TID ##0 03/04/10 (PERCOCET 7.5/325 *) Tramadol Hcl 50 mg PO TID ##0 03/04/10 lisinopril 10 mg tablet 10 mg PO DAILY ##0 03/04/10 meloxicam 15 mg tablet 15 mg PO DAILY ##0 03/04/10 Previous Rx's ?Medication ?Instructions ?Recorded amoxicillin 500 mg tablet 500 mg PO TID #21 tabs 02/23/22 ibuprofen 600 mg tablet 600 mg PO TID PRN pain #30 tabs 05/01/22 nirmatrelvir 300 mg (150 mg See Rx Instructions PO .COMPLEX 05/01/22 x2)-ritonavir 100 mg tablet,dose #30 tabs pack (Paxlovid) acetaminophen 325 mg tablet 325 mg PO QID #30 tabs 11/14/24 (Tylenol) acetaminophen 500 mg tablet 1,000 mg (2 x 500 mg) PO Q6H PRN 11/14/24 (Tylenol Extra Strength) pain #20 tabs lorazepam 2 mg tablet (Ativan) 2 mg PO TID PRN agitation #10 tabs 11/14/24 baclofen 5 mg tablet 5 mg PO BID PRN muscle spasm #14 12/02/24 tabs peg 3350-electrolytes 236 240 ml PO Q10M #4,000 mL 12/28/24 gram-22.74 gram-6.74 gram-5.86 gram solution (Golytely) magnesium hydroxide 2,400 mg/10 mL 30 ml PO QDAY PRN constipation #60 01/05/25 oral suspension (Milk Of Magnesia mL Concentrated) Allergies Allergy/AdvReac Type Severity Reaction Status Date / Time No Known Allergies Allergy Verified 12/02/24 01:30 Review of Systems Review of Systems Systems Reviewed: All systems reviewed, normal except as documented Past Medical History Past Medical History GENITOURINARY: Positive Benign Prostatic Hyperplasia OTHER HISTORY: Positive Falls Social History SMOKING STATUS: Former smoker ED Exam Narrative Physical exam: See [facility] for Dr. Olivares's Physical Exam Documentation. Course Quality Measures none Orders Category Date Time Status Saline [Insert IV] NOW Care 01/05/25 01:07 Completed Straight [In and Out Catheter] X1 Care 01/05/25 01:[address] abdomen pelvis wo con Stat Exams 01/05/25 01:07 Completed US gall bladder Stat Exams 01/05/25 01:08 Completed Amylase Stat Lab 01/05/25 01:37 Completed Bilirubin,Direct Stat Lab 01/05/25 01:37 Completed CBC Stat Lab 01/05/25 01:37 Completed CMP [Comprehensive Metabolic Panel] Stat Lab 01/05/25 01:37 Completed CRP [C-Reactive Protein] Stat Lab 01/05/25 01:37 Completed ESR [Sed Rate (ESR)] Stat Lab 01/05/25 01:37 Completed Free T3 Stat Lab 01/05/25 01:37 Completed Free T4 (Free Thyroxine) Stat Lab 01/05/25 01:37 Completed Hemoglobin A1C [Glycohemoglobin w (eAG)] Stat Lab 01/05/25 01:37 Completed Lipase Stat Lab 01/05/25 01:37 Completed Magnesium Stat Lab 01/05/25 01:37 Completed Procalcitonin Stat Lab 01/05/25 01:37 Completed TSH [Thyroid Stimulating Hormone] Stat Lab 01/05/25 01:37 Completed UA, C/S IF [Urinalysis, C/S if Indicated] Stat Lab 01/05/25 02:08 Completed Morphine* Inj Med 01/05/25 01:07 Discontinued 2 mg IV X1 ONE Ondansetron Inj [Zofran Inj] Med 01/05/25 01:07 Discontinued 4 mg IVP X1 ONE Sodium Chloride 0.9% 1000 ml [Ns] 1,000 ml Med 01/05/25 01:07 Discontinued IV 999 mls/hr Sodium Chloride 0.9% 1000 ml [Ns] 1,000 ml Med 01/05/25 04:07 Discontinued IV 999 mls/hr Vital Signs Vital signs: Vital Signs Temperature 98.3 F 01/05/25 00:01 Pulse Rate 67 01/05/25 00:01 Respiratory Rate 18 01/05/25 00:01 Blood Pressure 126/67 01/05/25 00:01 Pulse Oximetry (%) 97 01/05/25 00:01 Oxygen Delivery Method Room Air 01/05/25 00:01 Abdominal Pain MDM MDM Narrative MDM Narrative:: This section includes all my notes and documentations, including HPI, PE, and ED course. Ben Olivares MD HPI: 74 y/o male with several days of worsening abdominal pain. Has trouble localizing the pain further. Has trouble describing the quality and quantity of the pain. Uncertain about exacerbating factors or relieving factors. Occasional nausea. No vomiting. No anorexia. No fever. No other complaints. ROS: All negative except as documented in HPI. Physical Exam: General: Alert and oriented. No acute distress when remaining still. Eyes: Conjunctivae and lids clear. ENT: No nasal congestion. Neck: Supple. Heart: RRR. Lungs: No respiratory distress. Good air movement. No rhonchi, wheezing, rales. Abdomen: Soft and nontender. Normal bowel sounds. No distension. No rebound or guarding. Back: No CVA tenderness. Skin: Warm and dry. Neuro: Alert and oriented X 3. I reviewed all diagnostic test results: My review of the Gall Bladder US report is no acute findings. My review of the Abdomen/Pelvis CT report is constipation. Blood tests and urine tests unremarkable. At this point, diagnoses include: Constipation Treatment here included: IVF Morphine 2 mg IV Zofran 4 mg IV Show much better. Recommended conservative treatment and more outpatient workup. Based on my best medical judgment, made decision no further evaluation or treatment indicated at this time. Patient understands and agrees to the discharge instructions customized and printed, see below. Discharge instructions from Dr. Olivares printed for you: ?After evaluation, there is no emergency.? Such as appendicitis needing urgent surgery. -You have severe constipation. ?Take milk of magnesia as prescribed.? May take a few days but this will help clear out your bowels. ?To help current constipation and prevent future constipation, increase oral fluid because dehydration cause severe constipation.? Maintain clear urine.? If dark or yellow, increase oral fluid. ?And every day, increase fresh fruits and fresh vegetables and physical exercise. We need to move and increase physical activity every single day. Prolonged inactivity is terrible for your body. ?See a private doctor on 01/08/2025 for recheck. To make sure there is no serious underlying abdominal condition, ask to help you get more care not available here in the ER.? Such as EGD or scoping of your stomach, colonoscopy or scoping the colon, and a referral to see a gamma ray operator. Ask to review all test results and official radiology reports, to make sure you receive all necessary follow-ups and monitoring. ?Seek immediate medical care with worsening or with any concerns. Ben Olivares MD Patient data External records reviewed:: [facility] previous records (Reviewed prior ED records from 12/28/24. Patient was seen for Constipation.) Clinical information provided by:: patient Social determinants that could affect healthcare access:: none Patient has the following chronic illnesses:: Benign Prostatic Hyperplasia How is presenting disease/condition affected by chronic disease/condition?: exacerbated by Evaluation data The following diagnostics were reviewed and interpreted by me:: lab results and radiology exam(s) Lab and/or radiology exams considered but not ordered:: None Interpretation Summary: I reviewed all diagnostic test results: My review of the Gall Bladder US report is no acute findings. My review of the Abdomen/Pelvis CT report is constipation. Blood tests and urine tests unremarkable. Medications / Prescriptions Medications or Prescriptions considered but not ordered:: None Medication administrations:: Medication Administration History Discontinued Medications Sodium Chloride (Ns) 1,000 mls @ 999 mls/hr IV .Q1H1M ONE Stop: 01/05/25 02:07 Last Infusion: 01/05/25 02:34 Dose: Infused Documented By: Admin: 01/05/25 01:31 Dose: 999 mls/hr Documented By: AC Sodium Chloride (Ns) 1,000 mls @ 999 mls/hr IV .Q1H1M ONE Stop: 01/05/25 05:07 Last Infusion: 01/05/25 05:02 Dose: Infused Documented By: Admin: 01/05/25 04:18 Dose: 999 mls/hr Documented By: [email or web address] Morphine Sulfate (Morphine Sulf Inj 4 Mg/Ml Vial) 2 mg IV X1 ONE Stop: 01/05/25 01:08 Last Admin: 01/05/25 01:32 Dose: 2 mg Documented By: LISETH Ondansetron HCl (Ondansetron Inj 2 Mg/Ml Inj 2 Ml) 4 mg IVP X1 ONE; Protocol Stop: 01/05/25 01:08 Last Admin: 01/05/25 01:33 Dose: 4 mg Documented By: LISETH Treatment here included: IVF Morphine 2 mg IV Zofran 4 mg IV Consultations Consultation(s) initiated? (list below): No Diagnosis Differential diagnosis abdominal pain: abdominal pain, acute appendicitis, calculus of kidney, constipation, diverticulitis, gastroenteritis and small bowel obstruction Most likely diagnosis given after review of the tests above:: Constipation Admission Indicated Admission indicated?: not indicated Explain why admission is indicated or not indicated:: With no condition needing emergent intervention, there was no indication for admission. Admission Request Was there a request for admission?: No Disposition Plan Disposition Plan: Discharge Discharge Attestation Discharge Attestation: The patient and all family members were given an opportunity to ask questions and understood the discharge instructions. Discharge instructions specifically effects, indications for sooner follow up or return to the emergency department, and the expected course of current diagnosis. Patient condition: Stable Discharge Plan Plan Patient Disposition: HOME (Self Care) Prescriptions/Referrals Prescriptions/Med Rec: New magnesium hydroxide [Milk Of Magnesia Concentrated] 2,400 mg/10 mL suspension 30 ml PO QDAY PRN (Reason: constipation) Qty: 60 0RF No Action ACETAMINOPHEN WITH CODEINE (TYLENOL W/COD #3) 1 TAB tablet 1 - 2 tabs PO QPM Qty: 0 meloxicam 15 MG tablet 15 mg PO DAILY Qty: 0 lisinopril 10 MG tablet 10 mg PO DAILY Qty: 0 Oxycodone Hcl/Acetaminophen * (PERCOCET 7.5/325 *) 1 TAB tablet 1 tab PO TID Qty: 0 Tramadol Hcl 50 MG tablet 50 mg PO TID Qty: 0 amoxicillin 500 mg tablet 500 mg PO TID Qty: 21 0RF acetaminophen [Tylenol Extra Strength] 500 mg tablet 1,000 mg PO Q6H PRN (Reason: pain) Qty: 20 0RF lorazepam [Ativan] 2 mg tablet 2 mg PO TID PRN (Reason: agitation) Qty: 10 0RF peg 3350-electrolytes [Golytely] 236-22.74-6.74 -5.86 gram recon soln 240 ml PO Q10M Qty: 4000 0RF Rx Instructions: until fecal effluent is clear Paxlovid 300 mg (150 mg x 2)-100 mg tablets,dose pack See Rx Instructions .ROUTE .COMPLEX Qty: 30 0RF Rx Instructions: take TWO 150 mg tablets of nirmatrelvir with ONE 100 mg tablet of ritonavir twice daily for 5 days ibuprofen 600 mg tablet 600 mg PO TID PRN (Reason: pain) Qty: 30 0RF acetaminophen [Tylenol] 325 mg tablet 325 mg PO QID Qty: 30 0RF baclofen 5 mg tablet 5 mg PO BID PRN (Reason: muscle spasm) Qty: 14 0RF Referrals: Js Talley MD [Primary Care Provider, Family Practice] - In 1 week Problem List Clinical Impression: Constipation Patient/Caregiver Discharge Instructions Discharge Activity: activity as tolerated Education Materials: ED Constipation (Adult) Additional Instructions: Discharge instructions from Dr. Olivares printed for you: ?After evaluation, there is no emergency.? Such as appendicitis needing urgent surgery. -You have severe constipation. ?Take milk of magnesia as prescribed.? May take a few days but this will help clear out your bowels. ?To help current constipation and prevent future constipation, increase oral fluid because dehydration cause severe constipation.? Maintain clear urine.? If dark or yellow, increase oral fluid. ?And every day, increase fresh fruits and fresh vegetables and physical exercise. We need to move and increase physical activity every single day. Prolonged inactivity is terrible for your body. ?See a private doctor on 01/08/2025 for recheck. To make sure there is no serious underlying abdominal condition, ask to help you get more care not available here in the ER.? Such as EGD or scoping of your stomach, colonoscopy or scoping the colon, and a referral to see a gamma ray operator. Ask to review all test results and official radiology reports, to make sure you receive all necessary follow-ups and monitoring. ?Seek immediate medical care with worsening or with any concerns. Instrucciones de tommy del Dr. Olivares impresas para usted: ?Tras la evaluaci?n, no hay ninguna emergencia, anoop apendicitis que requiera cirug?a urgente. ?Tiene estre?imiento dionte. ?[place] leche de magnesia seg?n lo prescrito. Puede tardar unos d?as, shantal esto ayudar? a limpiar lisette intestinos. ?Para aliviar el estre?imiento actual y prevenirlo en el futuro, aumente la ingesta de l?quidos, ya que la deshidrataci?n causa estre?imiento dionte. Mantenga la orina emiliana. Si es oscura o amarilla, aumente la ingesta de l?quidos. ?Adem?s, aumente diariamente la ingesta de frutas y verduras frescas y realice ejercicio f?sico. Necesitamos movernos y aumentar la actividad f?bari todos los d?as. La inactividad prolongada es muy perjudicial para elder wicho. ?Consulte a un m?dico particular el 08/01/2025 para steve revisi?n. Para asegurarse de que no haya ninguna afecci?n abdominal subyacente grave, solicite ayuda para obtener atenci?n m?dica adicional que no est? disponible aqu? en urgencias. Pruebas anoop steve endoscopia digestiva tommy (EGD) o exploraci?n del est?yaneth, steve colonoscopia o exploraci?n del colon, y steve derivaci?n a un gastroenter?logo. Solicite revisar todos los resultados de las pruebas y los informes radiol?gicos oficiales para asegurarse de recibir el seguimiento y la monitorizaci?n necesarios. --Busque atenci?n m?dica inmediata si elder estado empeora o si tiene alguna inquietud. Print Language: Hebrew Stand Alone Forms: Janine Award Info., Patient Portal Info Letter
[2025-01-05 01:29] VITALS: BP 136/66; PULSE 67; RESP 16; TEMP 36.3; O2SAT 97
[2025-01-05] MEDS: SODIUM CHLORIDE 0.9% 1000 ML 1,000 ML 999 ML IV ×2 (01:31→04:18)
[2025-01-05] MEDS: MORPHINE SULF INJ 4 MG/ML VIAL 2 MG IV (01:32)
[2025-01-05] MEDS: ONDANSETRON INJ 2 MG/ML INJ 2 ML 4 MG IVP (01:33)
[2025-01-05 01:57] LABS: Basophils # (Auto) 0.1 Thou/mm3 (0.0-0.2); Basophils % (Auto) 1 % (0-2.5); Eosinophils # (Auto) 0.2 Thou/mm3 (0.0-0.5); Eosinophils % (Auto) 3 % (0-10); Hematocrit 37.9 % (41.0-53.0); Hemoglobin 12.7 g/dL (13.5-16.0); Immature Granulocytes Auto 0.02 Thou/mm3 (0.00-0.00); Lymphocytes # (Auto) 2.2 Thou/mm3 (1.0-4.8); Lymphocytes % (Auto) 27 % (10-50); Mean Corpuscular HGB Conc 33.5 g/dl (31.0-37.0); Mean Corpuscular Hemoglobin 31.1 pg (25.0-35.0); Mean Corpuscular Volume 93 fL (80-100); Monocytes # (Auto) 0.6 Thou/mm3 (0.0-0.8); Monocytes % (Auto) 8 % (0-12); Neutrophils # (Auto) 5.0 Thou/mm3 (1.8-7.7); Neutrophils % (Auto) 61 % (37-80); Nucleated Red Blood Cell # 0.00 Thou/mm3 (0.00-0.00); Nucleated Red Blood Cell % 0 /100 WBC (0); Platelet Count 170 Thou/mm3 (140-440); RDW Standard Deviation 46.2 fL (35.1-43.9); Red Blood Count 4.08 Miln/mm3 (4.50-5.90); White Blood Count 8.2 Thou/mm3 (3.8-10.6)
[2025-01-05 02:07] LABS: Sed Rate (ESR) 26 mm/hr (0-20)
--- NOTE | 2025-01-05 02:10 | PRELIM_ITS ---
CT scan of the abdomen and pelvis without intravenous contrast (axial sections with sagittal and coronal reformats) January 05, 2025 at 0120 hours Clinical History: Abdominal pain. Comparison: No prior study is available for comparison. Findings: No evidence of renal/ureteric calculus or hydroureteronephrosis. Nonspecific perinephric fat stranding is noted bilaterally. There is a 1.4 cm left renal cortical cyst at the medial aspect. The liver, gallbladder, pancreas, spleen and adrenals are unremarkable on this noncontrast study. No evidence of bowel obstruction. A moderate amount of fecal material is present in the colon. The appendix is within normal limits (images [id number]). There is no mesenteric or retroperitoneal adenopathy. A small fat-containing umbilical hernia is present without evidence of incarceration. The urinary bladder is unremarkable. The prostate is moderately enlarged. There is no free fluid or free air. There are small fat containing bilateral inguinal hernias. Degenerative changes are identified in the spine. Streaky atelectasis/scarring in the lingula and right lung base. Please note that evaluation of soft tissue/vascular structures and bowel loops is limited due to absence of IV and oral contrast. Impression: Subtle nonspecific bilateral perinephric fat stranding, which may be due to intravenous infusion versus pyelonephritis. Other findings as described above. Suggest clinical correlation and follow up accordingly. Report Electronically Signed By: Jhonatan Dugan 01/05/2025 2:09:55 AM [EST]
[2025-01-05 02:19] LABS: Glucose Estimated Average 120 mg/dL (80-131); Hemoglobin A1C 5.8 % Hgb (4.8-6.0)
[2025-01-05 02:21] LABS: Alanine Aminotransferase 16 U/L (10-49); Albumin, Serum 4.5 gm/dL (3.4-4.8); Albumin/Globulin Ratio 1.7 (1.2-2.2); Alkaline Phosphatase 68 U/L (46-116); Amylase 128 U/L (30-118); Anion Gap 11 (7-16); Aspartate Amino Transferase 25 U/L (0-34); BUN/Creatinine Ratio 15 Ratio (12-20); Bilirubin,Direct 0.3 mg/dL (0.0-0.3); Bilirubin,Total 0.8 mg/dL (0.3-1.2); Blood Urea Nitrogen 20 mg/dL (9-23); C-Reactive Protein < 0.5 mg/dL (0.0-0.9); Calcium 9.3 mg/dL (8.3-10.6); Calcium (Corrected) 9.3 mg/dL (8.5-10.1); Carbon Dioxide 27.3 mMol/L (20.0-31.0); Chloride 106 mMol/L (98-107); Creatinine (Component) 1.3 mg/dL (0.6-1.3); Globulin 2.6 gm/dL (2.3-3.5); Glucose 97 mg/dL (74-106); Lipase 41 U/L (12-53); Magnesium 1.9 mg/dL (1.6-2.6); Osmolality,Calculated 289 (275-295); Potassium 4.0 mMol/L (3.4-5.1); Procalcitonin < 0.04 ng/ml (0.0-0.49); Sodium 144 mMol/L (136-145); Thyroid Stimulating Hormone 0.16 uIU/mL (0.55-4.78); Total Protein 7.1 gm/dL (5.7-8.2); eGFR 57 See Note
[2025-01-05 02:58] LABS: Collection Type, Urine Clean Catch; Squamous Epithelial Cell,Urine 0 /hpf (0-5); WBC,Urine 0 /hpf (0-5)
[2025-01-05 03:01] LABS: Free T3 2.9 pg/mL (2.3-4.2); Free T4 (Free Thyroxine) 1.73 ng/dL (0.89-1.76)
[2025-01-05 03:07] LABS: Bilirubin,Urine Negative (Negative); Blood,Urine Negative (Negative); Clarity,Urine Clear (Clear/Hazy); Color,Urine Lt-Yellow (Lt Yel-Yel); Culture Indicated,Urine Not Indicated; Glucose, Urine Negative (Negative); Ketones,Urine Negative (Negative); Leukocyte Esterase,Urine Negative (Negative); Nitrite,Urine Negative (Negative); PH,Urine 6.5 (5.0-7.0); Protein,Urine Negative (Neg - Trace); RBC,Urine < 1 /hpf (0-3); Specific Gravity,Urine 1.011 (1.001-1.035); Urobilinogen,Urine Negative mg/dL (0.0-1.0)
--- NOTE | 2025-01-05 03:11 | PRELIM_ITS ---
Gallbladder ultrasound with Doppler and wave Doppler spectral analysis. January 05, 2025 0153 hours Clinical history: Right upper quadrant tenderness. Correlated to CT of January 05, 2025. Findings: The evaluation is limited due to overlying bowel gas The liver is hyperechoic and heterogenous and demonstrates irregular liver margins. No gallbladder calculus, wall thickening or pericholecystic fluid is identified. The common duct is normal in caliber at 0.3 cm. No free fluid is demonstrated on the submitted images. The hepatic veins are patent. The portal vein is patent with hepatopetal flow and normal wave Doppler spectral analysis. The inferior vena cava is patent. Impression: Cirrhosis. No evidence of acute cholecystitis. Report Electronically Signed By: London Silveira 01/05/2025 3:11:00 AM [EST]
[2025-01-05 05:03] VITALS: BP 129/65; PULSE 69; RESP 14; TEMP 36.9; O2SAT 96
== END 2025-01-05 05:04 | disposition home or self-care (01) ==
PROVIDERS: Emergency Provider Emergency Medicine; PCP Family Medicine
DX: K59.00 Constipation, unspecified (principal)
CPT/HCPCS: 36415; 74176; 76705; 80053; 81001; 82150; 82248; 83036; 83690; 83735; 84145; 84439; 84443; 84481; 85025; 85652; 86140; 96361; 96374; 99284; J2270; J2405; J7030

== ENCOUNTER 2025-01-11 20:20 | Emergency (ER) | payer MEDICARE, SELFPAY ==
[2025-01-11 20:26] VITALS: BMI 27.3
[2025-01-11 20:34] VITALS: BP 153/72; PULSE 76; RESP 18; TEMP 37.1; O2SAT 96
--- NOTE | 2025-01-11 20:47 | PD.EDANX ---
ED Anxiety RME/HPI General Chief Complaint: General Adult/Misc Complain Stated Complaint: TROUBLE SLEEPING Time Seen by Provider: 01/11/25 20:43 Arrival date/time: 01/11/25 20:20 74M with history of HTN presents to ED with intermittent insomnia recently after he ran out of his Tramadol he's been taking for a month. Separately, patient has also bee constipated since taking Tramadol. Patient was recently in here multiple times for the latter issue with unremarkable extensive work-up. Limitations: no limitations Related Data Home Medications ?Medication ?Instructions ?Recorded ?Confirmed ACETAMINOPHEN WITH CODEINE 1 - 2 tabs PO QPM ##0 03/04/10 (TYLENOL W/COD #3) Oxycodone Hcl/Acetaminophen * 1 tab PO TID ##0 03/04/10 (PERCOCET 7.5/325 *) Tramadol Hcl 50 mg PO TID ##0 03/04/10 lisinopril 10 mg tablet 10 mg PO DAILY ##0 03/04/10 meloxicam 15 mg tablet 15 mg PO DAILY ##0 03/04/10 Previous Rx's ?Medication ?Instructions ?Recorded amoxicillin 500 mg tablet 500 mg PO TID #21 tabs 02/23/22 ibuprofen 600 mg tablet 600 mg PO TID PRN pain #30 tabs 05/01/22 nirmatrelvir 300 mg (150 mg See Rx Instructions PO .COMPLEX 05/01/22 x2)-ritonavir 100 mg tablet,dose #30 tabs pack (Paxlovid) acetaminophen 325 mg tablet 325 mg PO QID #30 tabs 11/14/24 (Tylenol) acetaminophen 500 mg tablet 1,000 mg (2 x 500 mg) PO Q6H PRN 11/14/24 (Tylenol Extra Strength) pain #20 tabs lorazepam 2 mg tablet (Ativan) 2 mg PO TID PRN agitation #10 tabs 11/14/24 baclofen 5 mg tablet 5 mg PO BID PRN muscle spasm #14 12/02/24 tabs peg 3350-electrolytes 236 240 ml PO Q10M #4,000 mL 12/28/24 gram-22.74 gram-6.74 gram-5.86 gram solution (Golytely) magnesium hydroxide 2,400 mg/10 mL 30 ml PO QDAY PRN constipation #60 01/05/25 oral suspension (Milk Of Magnesia mL Concentrated) Allergies Allergy/AdvReac Type Severity Reaction Status Date / Time No Known Allergies Allergy Verified 01/11/25 20:30 Review of Systems Review of Systems Systems Reviewed: All systems reviewed, normal except as documented Psychiatric Psychiatric: Reports as per HPI and Reports other (insomnia) Past Medical History Past Medical History CARDIAC: Positive Hypertension; Negative Hypercholesterolemia or Congestive Heart Failure RESPIRATORY: Negative Chronic Obstructive Pulmonary Disease (COPD) GENITOURINARY: Positive Benign Prostatic Hyperplasia; Negative Renal Disease MUSCULOSKELETAL: Positive Musculoskeletal Disorders and Arthritis ENDOCRINE: Negative Diabetes Mellitus Type 1 or Diabetes Mellitus Type 2 OTHER HISTORY: Positive Falls Social History SMOKING STATUS: Never smoker ED Exam General Limitations: Present no limitations General appearance: Present alert and in no apparent distress Head Head exam: Present atraumatic Neck Neck exam: Present normal inspection, full ROM and trachea midline Chest Chest inspection: Present normal inspection and symmetric chest wall rise Neurological Exam Neurological exam: Present alert and oriented X3 Psychiatric Psychiatric exam: Present normal affect and normal mood Skin Skin exam: Present warm, dry, intact and normal color Course Quality Measures none Orders Category Date Time Status Diazepam [Valium] Med 01/11/25 20:44 Discontinued 10 mg PO X1 ONE Vital Signs Vital signs: Vital Signs Temperature 98.7 F 01/11/25 20:34 Pulse Rate 76 01/11/25 20:34 Respiratory Rate 18 01/11/25 20:34 Blood Pressure 153/72 H 01/11/25 20:34 Pulse Oximetry (%) 96 01/11/25 20:34 Oxygen Delivery Method Room Air 01/11/25 20:34 Anxiety MDM Narrative MDM Narrative: 74M with history of HTN presents to ED with intermittent insomnia recently after he ran out of his Tramadol he's been taking for a month. Separately, patient has also bee constipated since taking Tramadol. Patient was recently in here multiple times for the latter issue with unremarkable extensive work-up. Physical exam reveals well-appearing male. Speech normal. Gait normal. Patient is afebrile, calm, and alert. Tramadol is likely causing both constipation due to its opioid properties, and lack of use is causing mild withdrawal symptoms due its SNRI properties. Meds and vocational guidance counselor given. Patient data External records reviewed:: [facility] previous records Clinical information provided by:: patient Social determinants that could affect healthcare access:: none Patient has the following chronic illnesses:: HTN How is presenting disease/condition affected by chronic disease/condition?: uneffected by Evaluation data The following diagnostics were reviewed and interpreted by me:: other (specify) (none) Lab and/or radiology exams considered but not ordered:: not ordered Interpretation Summary: n/a Medications / Prescriptions Medications or Prescriptions considered but not ordered:: ordered Medication administrations:: Medication Administration History Discontinued Medications Diazepam (Diazepam 5 Mg Tablet) 10 mg PO X1 ONE Stop: 01/11/25 20:45 Consultations Consultation(s) initiated? (list below): No Diagnosis Differential diagnosis anxiety: hyperventilation, panic disorder, acute anxiety and other (drug adverse effect and insomnia) Most likely diagnosis given after review of the tests above:: drug adverse effect and insomnia Admission Indicated Admission indicated?: not indicated Admission Request Was there a request for admission?: No Disposition Plan Disposition Plan: Discharge Discharge Attestation Discharge Attestation: The patient and all family members were given an opportunity to ask questions and understood the discharge instructions. Discharge instructions specifically effects, indications for sooner follow up or return to the emergency department, and the expected course of current diagnosis. Patient condition: Stable Discharge Plan Plan Patient Disposition: HOME (Self Care) Discharge Disposition comment: Stable Prescriptions/Referrals Prescriptions/Med Rec: No Action ACETAMINOPHEN WITH CODEINE (TYLENOL W/COD #3) 1 TAB tablet 1 - 2 tabs PO QPM Qty: 0 meloxicam 15 MG tablet 15 mg PO DAILY Qty: 0 lisinopril 10 MG tablet 10 mg PO DAILY Qty: 0 Oxycodone Hcl/Acetaminophen * (PERCOCET 7.5/325 *) 1 TAB tablet 1 tab PO TID Qty: 0 Tramadol Hcl 50 MG tablet 50 mg PO TID Qty: 0 amoxicillin 500 mg tablet 500 mg PO TID Qty: 21 0RF acetaminophen [Tylenol Extra Strength] 500 mg tablet 1,000 mg PO Q6H PRN (Reason: pain) Qty: 20 0RF lorazepam [Ativan] 2 mg tablet 2 mg PO TID PRN (Reason: agitation) Qty: 10 0RF peg 3350-electrolytes [Golytely] 236-22.74-6.74 -5.86 gram recon soln 240 ml PO Q10M Qty: 4000 0RF Rx Instructions: until fecal effluent is clear Paxlovid 300 mg (150 mg x 2)-100 mg tablets,dose pack See Rx Instructions .ROUTE .COMPLEX Qty: 30 0RF Rx Instructions: take TWO 150 mg tablets of nirmatrelvir with ONE 100 mg tablet of ritonavir twice daily for 5 days ibuprofen 600 mg tablet 600 mg PO TID PRN (Reason: pain) Qty: 30 0RF acetaminophen [Tylenol] 325 mg tablet 325 mg PO QID Qty: 30 0RF baclofen 5 mg tablet 5 mg PO BID PRN (Reason: muscle spasm) Qty: 14 0RF magnesium hydroxide [Milk Of Magnesia Concentrated] 2,400 mg/10 mL suspension 30 ml PO QDAY PRN (Reason: constipation) Qty: 60 0RF Problem List Clinical Impression: Insomnia, Adverse drug effect Patient/Caregiver Discharge Instructions Education Materials: ED Drug Reaction, Other, ED Insomnia Additional Instructions: Please follow-up with PCP within 24-48 hours and return immediately if symptoms worsen. See PCP about not being on Tramadol. Print Language: Indonesian Stand Alone Forms: Patient Portal Info Letter MARCOS/AKIKO Supervising Physician MARCOS/AKIKO Supervising Physician: Dr. Pool
[2025-01-11] MEDS: DIAZEPAM 5 MG TABLET 10 MG PO (20:49)
== END 2025-01-11 20:52 | disposition home or self-care (01) ==
LOC: SERX 20:57
PROVIDERS: Emergency Provider Emergency Medicine
DX: G47.00 Insomnia, unspecified (principal); K59.03 Drug induced constipation; T40.425A Adverse effect of tramadol, initial encounter
CPT/HCPCS: 99281; A9270

== ENCOUNTER 2025-01-13 23:14 | Emergency (ER) | payer MEDICARE, SELFPAY ==
[2025-01-13 23:15] VITALS: BMI 27.3
[2025-01-13 23:27] VITALS: BP 121/64; PULSE 72; RESP 18; TEMP 36.9; O2SAT 97
--- NOTE | 2025-01-13 23:33 | XR_ITS ---
Examination: CT abdomen and pelvis without contrast. Coronal 3-D reconstructions. Sagittal 2-D reconstructions. Date and time of exam: January 13, 2025, 11:44 p.m., comparison January 05, 2025 INDICATIONS: Abdominal pain constipation today CTDI: vol (mGy): 8.14 DLP: (mGycm): 461 Technique: Axial images of the abdomen have been obtained, 3 mm slice thickness Intravenous contrast material has not been administered. Low dose protocols were performed. One or more of the following dose reduction techniques were used; automated exposure control, adjustment of the mA and/or KV according to patient size, use of iterative reconstruction technique. Findings: No focal liver or splenic lesions Contracted gallbladder No pancreatic or adrenal mass Perinephric stranding Aorta normal size Fluid distended colon Normal appendix No diverticulitis Moderate prostatomegaly Urinary bladder intact Advanced disc narrowing L5-S1 IMPRESSION: Perinephric stranding, consider urinary tract infection Moderate colonic ileus with abundant stool and fluid throughout the colon Normal appendix No bowel obstruction
--- NOTE | 2025-01-13 23:35 | PD.EDRME ---
Rapid Medical Screening Exam RME Arrival date/time: 01/13/25 23:14 This is a case of 74-year-old male with history of chronic constipation came in in the emergency room due to abdominal pain with nausea but no vomiting diarrhea today worsening of the symptoms this patient decided to sought consult here in the emergency room Chief Complaint: Abdominal Pain Time Seen by Provider: 01/13/25 23:33 Vital signs: Vital Signs Temperature 98.4 F 01/13/25 23:27 Pulse Rate 72 01/13/25 23:27 Respiratory Rate 18 01/13/25 23:27 Blood Pressure 121/64 01/13/25 23:27 Pulse Oximetry (%) 97 01/13/25 23:27 Oxygen Delivery Method Room Air 01/13/25 23:27 Exam: Moderate tenderness both lower abdomen no guarding no rebound no rigidity Clinical Impression: Abdominal pain
[2025-01-14 00:40] LABS: Basophils # (Auto) 0.1 Thou/mm3 (0.0-0.2); Basophils % (Auto) 1 % (0-2.5); Eosinophils # (Auto) 0.3 Thou/mm3 (0.0-0.5); Eosinophils % (Auto) 3 % (0-10); Hematocrit 37.9 % (41.0-53.0); Hemoglobin 12.2 g/dL (13.5-16.0); Immature Granulocytes Auto 0.01 Thou/mm3 (0.00-0.00); Lymphocytes # (Auto) 2.3 Thou/mm3 (1.0-4.8); Lymphocytes % (Auto) 28 % (10-50); Mean Corpuscular HGB Conc 32.2 g/dl (31.0-37.0); Mean Corpuscular Hemoglobin 30.7 pg (25.0-35.0); Mean Corpuscular Volume 95 fL (80-100); Monocytes # (Auto) 0.7 Thou/mm3 (0.0-0.8); Monocytes % (Auto) 8 % (0-12); Neutrophils # (Auto) 4.9 Thou/mm3 (1.8-7.7); Neutrophils % (Auto) 60 % (37-80); Nucleated Red Blood Cell # 0.00 Thou/mm3 (0.00-0.00); Nucleated Red Blood Cell % 0 /100 WBC (0); Platelet Count 186 Thou/mm3 (140-440); RDW Standard Deviation 47.6 fL (35.1-43.9); Red Blood Count 3.98 Miln/mm3 (4.50-5.90); White Blood Count 8.2 Thou/mm3 (3.8-10.6)
[2025-01-14 00:51] LABS: Alanine Aminotransferase 21 U/L (10-49); Albumin, Serum 4.4 gm/dL (3.4-4.8); Albumin/Globulin Ratio 1.6 (1.2-2.2); Alkaline Phosphatase 62 U/L (46-116); Anion Gap 7 (7-16); Aspartate Amino Transferase 28 U/L (0-34); BUN/Creatinine Ratio 8 Ratio (12-20); Bilirubin,Total 0.5 mg/dL (0.3-1.2); Blood Urea Nitrogen 9 mg/dL (9-23); Calcium 10.1 mg/dL (8.3-10.6); Calcium (Corrected) 10.1 mg/dL (8.5-10.1); Carbon Dioxide 29.0 mMol/L (20.0-31.0); Chloride 110 mMol/L (98-107); Creatinine (Component) 1.2 mg/dL (0.6-1.3); Estimated Creatinine Clearance 49.4 mL/min (>60); Globulin 2.7 gm/dL (2.3-3.5); Glucose 96 mg/dL (74-106); Lipase 44 U/L (12-53); Osmolality,Calculated 289 (275-295); Potassium 4.0 mMol/L (3.4-5.1); Sodium 146 mMol/L (136-145); Total Protein 7.1 gm/dL (5.7-8.2); eGFR > 60 See Note
[2025-01-14 01:02] LABS: Collection Type, Urine Clean Catch; Squamous Epithelial Cell,Urine 0 /hpf (0-5)
[2025-01-14 01:08] LABS: Bilirubin,Urine Negative (Negative); Blood,Urine Negative (Negative); Clarity,Urine Clear (Clear/Hazy); Color,Urine Lt-Yellow (Lt Yel-Yel); Glucose, Urine Negative (Negative); Hyaline Casts,Urine < 1 /hpf (0-1); Ketones,Urine Negative (Negative); Leukocyte Esterase,Urine Negative (Negative); Nitrite,Urine Negative (Negative); PH,Urine 6.5 (5.0-7.0); Protein,Urine Negative (Neg - Trace); RBC,Urine 1 /hpf (0-3); Specific Gravity,Urine 1.018 (1.001-1.035); Urobilinogen,Urine Negative mg/dL (0.0-1.0); WBC,Urine < 1 /hpf (0-5)
[2025-01-14 01:15] VITALS: BP 132/59; PULSE 57; RESP 13; TEMP 36.7; O2SAT 100
--- NOTE | 2025-01-14 01:45 | PD.EDABDPN ---
ED Abdominal Pain RME/HPI General Chief Complaint: Abdominal Pain Stated complaint: ABD PAIN AND CONSTIPATION Time seen by provider: 01/13/25 23:33 Arrival date/time: 01/13/25 23:14 RME / HPI RME / HPI narrative: 01/13/25 23:14 This is a case of 74-year-old male with history of chronic constipation came in in the emergency room due to abdominal pain with nausea but no vomiting diarrhea today worsening of the symptoms this patient decided to sought consult here in the emergency room DR. VELAZQUEZ MAIN ED EVALUATION: Patient presents with generalized abdominal pain of several days duration. 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 Patient took an entire bottle of magnesium citrate at 5 PM without associated BM. No gross disturbances, nausea, vomiting, fever, or chills. Does report relative chronic constipation. PMH: Hypercholesterolemia, Hypertension, Benign Prostatic Hyperplasia, Arthritis, Hypothyroidism PSH: Non-contributory Allergies: NKDA Social: Negative Exam: Moderate tenderness both lower abdomen no guarding no rebound no rigidity Impression: Abdominal pain Related Data Home Medications ?Medication ?Instructions ?Recorded ?Confirmed ACETAMINOPHEN WITH CODEINE 1 - 2 tabs PO QPM ##0 03/04/10 (TYLENOL W/COD #3) Oxycodone Hcl/Acetaminophen * 1 tab PO TID ##0 03/04/10 (PERCOCET 7.5/325 *) Tramadol Hcl 50 mg PO TID ##0 03/04/10 lisinopril 10 mg tablet 10 mg PO DAILY ##0 03/04/10 meloxicam 15 mg tablet 15 mg PO DAILY ##0 03/04/10 Previous Rx's ?Medication ?Instructions ?Recorded amoxicillin 500 mg tablet 500 mg PO TID #21 tabs 02/23/22 ibuprofen 600 mg tablet 600 mg PO TID PRN pain #30 tabs 05/01/22 nirmatrelvir 300 mg (150 mg See Rx Instructions PO .COMPLEX 05/01/22 x2)-ritonavir 100 mg tablet,dose #30 tabs pack (Paxlovid) acetaminophen 325 mg tablet 325 mg PO QID #30 tabs 11/14/24 (Tylenol) acetaminophen 500 mg tablet 1,000 mg (2 x 500 mg) PO Q6H PRN 11/14/24 (Tylenol Extra Strength) pain #20 tabs lorazepam 2 mg tablet (Ativan) 2 mg PO TID PRN agitation #10 tabs 11/14/24 baclofen 5 mg tablet 5 mg PO BID PRN muscle spasm #14 12/02/24 tabs peg 3350-electrolytes 236 240 ml PO Q10M #4,000 mL 12/28/24 gram-22.74 gram-6.74 gram-5.86 gram solution (Golytely) magnesium hydroxide 2,400 mg/10 mL 30 ml PO QDAY PRN constipation #60 01/05/25 oral suspension (Milk Of Magnesia mL Concentrated) bisacodyl 10 mg rectal suppository 10 mg VT QDAY 1 day #12 ea 01/14/25 (Dulcolax (bisacodyl)) docusate sodium 100 mg capsule 100 mg PO BID #30 caps 01/14/25 (Colace) lactulose 10 gram/15 mL oral 30 ml PO BID #300 mL 01/14/25 solution Allergies Allergy/AdvReac Type Severity Reaction Status Date / Time No Known Allergies Allergy Verified 01/11/25 20:30 Review of Systems Review of Systems Systems Reviewed: All systems reviewed, normal except as documented Past Medical History Past Medical History CARDIAC: Positive Hypercholesterolemia and Hypertension GENITOURINARY: Positive Benign Prostatic Hyperplasia MUSCULOSKELETAL: Positive Arthritis ENDOCRINE: Positive Hypothyroidism OTHER HISTORY: Positive Falls ED Exam Narrative Physical exam: GEN. APPEARANCE: The patient is alert awake oriented X-3 under no distress, lying down comfortably, does not look ill/toxic. Patient has good eye contact. Patient is cooperative. VITALS: All vitals were reviewed and the pulse ox is 100%, which is normal according to my interpretation HEENT: Normocephalic, atraumatic and nontender. Pupils are equal and reactive. Oral mucosa is moist. NECK: Supple, nontender, no meningismus, no JVD. There is no thyromegaly and no lymphadenopathy. CHEST: Nontender on palpation no deformity and no crepitus. CARDIOVASCULAR: Heart regular rhythm, no murmur or gallop rub or extra beats. LUNGS: Clear to auscultation bilaterally with symmetrical chest rise. No laboring tachypnea or wheezing. No intercostal subcostal retraction. No rales and no rhonchi. ABDOMEN: Soft, flat, nontender to palpation, no guarding or rebound tenderness. There are no abnormal masses palpated. No pulsatile masses or bruits. Slightly high-pitched hypoactive bowel sounds, no peritoneal findings RECTAL: No fecal impaction, stool soft. EXTREMITIES: Normal inspection and palpation. No edema. No cyanosis. Patient is able to move all 4 extremities well SKIN: Warm and dry, no rashes noted. MUSCULOSKELETAL: No lumbar or midline bony tenderness. There is no CVA tenderness. No paraspinal muscle spasm or tenderness. NEURO: Cranial nerves II through XII grossly intact. There are no focal neurologic deficits noted. GCS is 15 PSYCHIATRIC: Patient is in normal mood and affect, cooperative. LYMPHATICS: No major lymphadenopathy noted. Course Quality Measures none Orders Category Date Time Status CT abdomen pelvis wo con Stat Exams 01/13/25 23:33 Completed CBC Stat Lab 01/13/25 23:34 Completed Comprehensive Metabolic Panel Stat Lab 01/13/25 23:34 Results Lipase Stat Lab 01/13/25 23:34 Results Thyroid Stimulating Hormone Stat Lab 01/14/25 00:12 Results Urinalysis Stat Lab 01/14/25 00:52 Completed Glycerin Supp Adult Med 01/14/25 01:59 Discontinued 1 each VT X1 ONE Sodium Chloride 0.9% 1000 ml [Ns] 1,000 ml Med 01/14/25 01:59 Active IV 999 mls/hr Vital Signs Vital signs: Vital Signs Temperature 98.4 F 01/13/25 23:27 Pulse Rate 72 01/13/25 23:27 Respiratory Rate 18 01/13/25 23:27 Blood Pressure 121/64 01/13/25 23:27 Pulse Oximetry (%) 97 01/13/25 23:27 Oxygen Delivery Method Room Air 01/13/25 23:27 Abdominal Pain MDM MDM Narrative MDM Narrative:: Scribe Attestation: I, Elizabeth Galvez, am scribing for and in the presence of Dr. Pool. Provider Notation: Although this document has been carefully reviewed, there may still be some phonetic and other typographical errors. These errors are purely grammatical due to imperfections in the software program and should not be construed in any way to compromise the substance of the patient's medical care during this visit. Patient presents with generalized abdominal pain of several days duration. 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 Patient took an entire bottle of magnesium citrate at 5 PM without associated BM. Please see PE findings. Laboratory markers, including CBC and serum chemistries demonstrated a normal WBC, stable hemoglobin of 12.22, and platelet count of 186. Serum chemistries demonstrate evidence of dehydration with sodium of 146 and chloride of 110. Renal function is stable. TSH is currently pending. Patient hydrated NS to correct volume deficit. Glycerin suppository was placed. Final diagnoses include Constipation and Dehydration. Patient data External records reviewed:: [facility] previous records (Reviewed prior ED records from 01/11/25. Patient was seen for Adverse drug effect.) Clinical information provided by:: patient Social determinants that could affect healthcare access:: none Patient has the following chronic illnesses:: Hypercholesterolemia, Hypertension, Benign Prostatic Hyperplasia, Arthritis How is presenting disease/condition affected by chronic disease/condition?: exacerbated by Evaluation data The following diagnostics were reviewed and interpreted by me:: lab results and radiology exam(s) Lab and/or radiology exams considered but not ordered:: None Interpretation Summary: RADIOLOGY Abdomen/Pelvis CT: Findings: No focal liver or splenic lesions Contracted gallbladder No pancreatic or adrenal mass Perinephric stranding Aorta normal size Fluid distended colon Normal appendix No diverticulitis Moderate prostatomegaly Urinary bladder intact Advanced disc narrowing L5-S1 IMPRESSION: Perinephric stranding, consider urinary tract infection Moderate colonic ileus with abundant stool and fluid throughout the colon Normal appendix No bowel obstruction Medications / Prescriptions Medications or Prescriptions considered but not ordered:: None Medication administrations:: Medication Administration History Sodium Chloride (Ns) 1,000 mls @ 999 mls/hr IV .Q1H1M ONE Stop: 01/14/25 02:59 Last Admin: 01/14/25 02:13 Dose: 999 mls/hr Documented By: LISETH Discontinued Medications Glycerin (Glycerin, Adult 1 Ea Supp) 1 each VT X1 ONE Stop: 01/14/25 02:00 See above if any Consultations Consultation(s) initiated? (list below): No Diagnosis Differential diagnosis abdominal pain: constipation, diverticulitis, gastroenteritis and small bowel obstruction Most likely diagnosis given after review of the tests above:: Constipation, Dehydration Admission Indicated Admission indicated?: not indicated Explain why admission is indicated or not indicated:: Patient does not meet admission criteria Admission Request Was there a request for admission?: No Disposition Plan Disposition Plan: Discharge Discharge Attestation Discharge Attestation: The patient and all family members were given an opportunity to ask questions and understood the discharge instructions. Discharge instructions specifically effects, indications for sooner follow up or return to the emergency department, and the expected course of current diagnosis. Patient condition: Stable Critical Care Time Critical Care Time Critical Care Time: No Discharge Plan Plan Patient Disposition: HOME (Self Care) Discharge Disposition comment: Stable Prescriptions/Referrals Prescriptions/Med Rec: No Action ACETAMINOPHEN WITH CODEINE (TYLENOL W/COD #3) 1 TAB tablet 1 - 2 tabs PO QPM Qty: 0 meloxicam 15 MG tablet 15 mg PO DAILY Qty: 0 lisinopril 10 MG tablet 10 mg PO DAILY Qty: 0 Oxycodone Hcl/Acetaminophen * (PERCOCET 7.5/325 *) 1 TAB tablet 1 tab PO TID Qty: 0 Tramadol Hcl 50 MG tablet 50 mg PO TID Qty: 0 amoxicillin 500 mg tablet 500 mg PO TID Qty: 21 0RF acetaminophen [Tylenol Extra Strength] 500 mg tablet 1,000 mg PO Q6H PRN (Reason: pain) Qty: 20 0RF lorazepam [Ativan] 2 mg tablet 2 mg PO TID PRN (Reason: agitation) Qty: 10 0RF peg 3350-electrolytes [Golytely] 236-22.74-6.74 -5.86 gram recon soln 240 ml PO Q10M Qty: 4000 0RF Rx Instructions: until fecal effluent is clear Paxlovid 300 mg (150 mg x 2)-100 mg tablets,dose pack See Rx Instructions .ROUTE .COMPLEX Qty: 30 0RF Rx Instructions: take TWO 150 mg tablets of nirmatrelvir with ONE 100 mg tablet of ritonavir twice daily for 5 days ibuprofen 600 mg tablet 600 mg PO TID PRN (Reason: pain) Qty: 30 0RF acetaminophen [Tylenol] 325 mg tablet 325 mg PO QID Qty: 30 0RF baclofen 5 mg tablet 5 mg PO BID PRN (Reason: muscle spasm) Qty: 14 0RF magnesium hydroxide [Milk Of Magnesia Concentrated] 2,400 mg/10 mL suspension 30 ml PO QDAY PRN (Reason: constipation) Qty: 60 0RF Referrals: No Primary/Family,Physician [Primary Care Provider] - In 1 week Problem List Clinical Impression: Constipation, Dehydration Impression comment: Constipation/dehydration Patient/Caregiver Discharge Instructions Discharge Activity: activity as tolerated Diet Instructions: Clear liquid diet x 24 to 48 hours Education Materials: ED Constipation (Adult), ED Dehydration (Adult) Additional Instructions: Maintain clear liquid diet for 24 to 48 hours. Medication as directed. Follow-up with primary care doctor in 3 to 5 days as needed. Use narcotic analgesics judiciously. Return if worsening. Print Language: Icelandic Stand Alone Forms: Janine Award Info., Patient Portal Info Letter
[2025-01-14] MEDS: SODIUM CHLORIDE 0.9% 1000 ML 1,000 ML 999 ML IV (02:13)
[2025-01-14] MEDS: GLYCERIN, ADULT 1 EA SUPP 1 EACH PR (02:18)
[2025-01-14 02:21] LABS: Thyroid Stimulating Hormone 0.14 uIU/mL (0.55-4.78)
[2025-01-14 02:58] VITALS: BP 110/85; PULSE 57; RESP 14; TEMP 37; O2SAT 99
== END 2025-01-14 03:00 | disposition home or self-care (01) ==
PROVIDERS: Nurse Practitioner Family; Emergency Provider Emergency Medicine
DX: E86.0 Dehydration (principal); K59.09 Other constipation; E03.9 Hypothyroidism, unspecified; E78.00 Pure hypercholesterolemia, unspecified; I10 Essential (primary) hypertension; M19.90 Unspecified osteoarthritis, unspecified site; Z79.1 Long term (current) use of non-steroidal anti-inflammatories (NSAID); N40.0 Benign prostatic hyperplasia without lower urinary tract symptoms
CPT/HCPCS: 36415; 74176; 80053; 81001; 83690; 84443; 85025; 99283; J7030; A9270

== ENCOUNTER 2025-01-17 17:53 | Emergency (ER) | payer MEDICARE, SELFPAY ==
[2025-01-17 17:53] VITALS: BMI 29.2
[2025-01-17 18:21] VITALS: BP 126/72; PULSE 78; RESP 16; TEMP 37.2; O2SAT 98
--- NOTE | 2025-01-17 18:41 | PD.EDRECHK ---
ED Recheck Abnl Lab Rx-RME/HPI General Chief Complaint: General Adult/Misc Complain Stated Complaint: NOT SLEEPING FOR 3 DAYS Time Seen by Provider: 01/17/25 18:33 Arrival date/time: 01/17/25 17:53 74M with history of HTN presents to ED with intermittent insomnia recently after he ran out of his Tramadol he's been taking for a month. Separately, patient has also bee constipated since taking Tramadol. Patient was recently in here multiple times for the latter issue with unremarkable extensive work-up. Patient was recently here for this. Limitations: no limitations Related Data Home Medications ?Medication ?Instructions ?Recorded ?Confirmed ACETAMINOPHEN WITH CODEINE 1 - 2 tabs PO QPM ##0 03/04/10 (TYLENOL W/COD #3) Oxycodone Hcl/Acetaminophen * 1 tab PO TID ##0 03/04/10 (PERCOCET 7.5/325 *) Tramadol Hcl 50 mg PO TID ##0 03/04/10 lisinopril 10 mg tablet 10 mg PO DAILY ##0 03/04/10 meloxicam 15 mg tablet 15 mg PO DAILY ##0 03/04/10 Previous Rx's ?Medication ?Instructions ?Recorded amoxicillin 500 mg tablet 500 mg PO TID #21 tabs 02/23/22 ibuprofen 600 mg tablet 600 mg PO TID PRN pain #30 tabs 05/01/22 nirmatrelvir 300 mg (150 mg See Rx Instructions PO .COMPLEX 05/01/22 x2)-ritonavir 100 mg tablet,dose #30 tabs pack (Paxlovid) acetaminophen 325 mg tablet 325 mg PO QID #30 tabs 11/14/24 (Tylenol) acetaminophen 500 mg tablet 1,000 mg (2 x 500 mg) PO Q6H PRN 11/14/24 (Tylenol Extra Strength) pain #20 tabs lorazepam 2 mg tablet (Ativan) 2 mg PO TID PRN agitation #10 tabs 11/14/24 baclofen 5 mg tablet 5 mg PO BID PRN muscle spasm #14 12/02/24 tabs peg 3350-electrolytes 236 240 ml PO Q10M #4,000 mL 12/28/24 gram-22.74 gram-6.74 gram-5.86 gram solution (Golytely) magnesium hydroxide 2,400 mg/10 mL 30 ml PO QDAY PRN constipation #60 01/05/25 oral suspension (Milk Of Magnesia mL Concentrated) cefdinir 300 mg capsule 300 mg PO BID #14 caps 01/14/25 docusate sodium 100 mg capsule 100 mg PO BID #30 caps 01/14/25 (Colace) lactulose 10 gram/15 mL oral 30 ml PO BID #300 mL 01/14/25 solution lactulose 10 gram/15 mL oral 30 ml PO BID #300 mL 01/14/25 solution Allergies Allergy/AdvReac Type Severity Reaction Status Date / Time No Known Allergies Allergy Verified 01/11/25 20:30 Review of Systems Review of Systems Systems Reviewed: All systems reviewed, normal except as documented Neurologic Neurologic: Reports as per HPI and Reports other (insomnia) Past Medical History Past Medical History CARDIAC: Positive Hypercholesterolemia and Hypertension; Negative Congestive Heart Failure RESPIRATORY: Negative Chronic Obstructive Pulmonary Disease (COPD) GENITOURINARY: Positive Benign Prostatic Hyperplasia; Negative Renal Disease MUSCULOSKELETAL: Positive Musculoskeletal Disorders and Arthritis ENDOCRINE: Positive Hypothyroidism; Negative Diabetes Mellitus Type 1 or Diabetes Mellitus Type 2 OTHER HISTORY: Positive Falls Social History SMOKING STATUS: Never smoker ED Exam General Limitations: Present no limitations General appearance: Present alert and in no apparent distress Head Head exam: Present atraumatic Neck Neck exam: Present normal inspection, full ROM and trachea midline Chest Chest inspection: Present normal inspection and symmetric chest wall rise Neurological Exam Neurological exam: Present alert and oriented X3 Psychiatric Psychiatric exam: Present normal affect and normal mood Skin Skin exam: Present warm, dry, intact and normal color Course Quality Measures none Orders Category Date Time Status hydrOXYzine HCL [Atarax] Med 01/17/25 18:33 Once 25 mg PO X1 ONE Vital Signs Vital signs: Vital Signs Temperature 99.0 F 01/17/25 18:21 Pulse Rate 78 01/17/25 18:21 Respiratory Rate 16 01/17/25 18:21 Blood Pressure 126/72 01/17/25 18:21 Pulse Oximetry (%) 98 01/17/25 18:21 Oxygen Delivery Method Room Air 01/17/25 18:21 O2 at 98% on RA and WNLs Recheck / Abnormal Lab / Rx MDM Narrative MDM Narrative:: 74M with history of HTN presents to ED with intermittent insomnia recently after he ran out of his Tramadol he's been taking for a month. Separately, patient has also bee constipated since taking Tramadol. Patient was recently in here multiple times for the latter issue with unremarkable extensive work-up. Patient was recently here for this. Physical exam reveals well-appearing male. Speech normal. Gait normal. Patient is afebrile, calm, and alert. Tramadol is likely causing both constipation due to its opioid properties, and lack of use is causing mild withdrawal symptoms due its SNRI properties. Meds and certified genetic counselor given. Patient data External records reviewed:: [facility] previous records Clinical information provided by:: patient Social determinants that could affect healthcare access:: none Patient has the following chronic illnesses:: HTN How is presenting disease/condition affected by chronic disease/condition?: uneffected by Evaluation data The following diagnostics were reviewed and interpreted by me:: other (specify) (none) Lab and/or radiology exams considered but not ordered:: not ordered Interpretation Summary: n/a Medications / Prescriptions Medications or Prescriptions considered but not ordered:: ordered Medication administrations:: Medication Administration History Hydroxyzine HCl (Hydroxyzine Hcl 25 Mg Tablet) 25 mg PO X1 ONE Stop: 01/17/25 18:34 above Consultations Consultation(s) initiated? (list below): No Diagnosis Recheck Differential Diagnosis: encounter for medication refill, encounter for wound recheck, encounter for recheck of burn, encounter for removal of sutures and warfarin-induced coagulopathy Most likely diagnosis given after review of the tests above:: drug adverse reaction Admission Indicated Admission indicated?: not indicated Admission Request Was there a request for admission?: No Disposition Plan Disposition Plan: Discharge Discharge Attestation Discharge Attestation: The patient and all family members were given an opportunity to ask questions and understood the discharge instructions. Discharge instructions specifically effects, indications for sooner follow up or return to the emergency department, and the expected course of current diagnosis. Patient condition: Stable Discharge Plan Plan Patient Disposition: HOME (Self Care) Discharge Disposition comment: Stable Prescriptions/Referrals Prescriptions/Med Rec: No Action ACETAMINOPHEN WITH CODEINE (TYLENOL W/COD #3) 1 TAB tablet 1 - 2 tabs PO QPM Qty: 0 meloxicam 15 MG tablet 15 mg PO DAILY Qty: 0 lisinopril 10 MG tablet 10 mg PO DAILY Qty: 0 Oxycodone Hcl/Acetaminophen * (PERCOCET 7.5/325 *) 1 TAB tablet 1 tab PO TID Qty: 0 Tramadol Hcl 50 MG tablet 50 mg PO TID Qty: 0 amoxicillin 500 mg tablet 500 mg PO TID Qty: 21 0RF acetaminophen [Tylenol Extra Strength] 500 mg tablet 1,000 mg PO Q6H PRN (Reason: pain) Qty: 20 0RF lorazepam [Ativan] 2 mg tablet 2 mg PO TID PRN (Reason: agitation) Qty: 10 0RF peg 3350-electrolytes [Golytely] 236-22.74-6.74 -5.86 gram recon soln 240 ml PO Q10M Qty: 4000 0RF Rx Instructions: until fecal effluent is clear docusate sodium [Colace] 100 mg capsule 100 mg PO BID Qty: 30 0RF lactulose 10 gram/15 mL solution 30 ml PO BID Qty: 300 0RF cefdinir 300 mg capsule 300 mg PO BID Qty: 14 0RF lactulose 10 gram/15 mL solution 30 ml PO BID Qty: 300 0RF Paxlovid 300 mg (150 mg x 2)-100 mg tablets,dose pack See Rx Instructions .ROUTE .COMPLEX Qty: 30 0RF Rx Instructions: take TWO 150 mg tablets of nirmatrelvir with ONE 100 mg tablet of ritonavir twice daily for 5 days ibuprofen 600 mg tablet 600 mg PO TID PRN (Reason: pain) Qty: 30 0RF acetaminophen [Tylenol] 325 mg tablet 325 mg PO QID Qty: 30 0RF baclofen 5 mg tablet 5 mg PO BID PRN (Reason: muscle spasm) Qty: 14 0RF magnesium hydroxide [Milk Of Magnesia Concentrated] 2,400 mg/10 mL suspension 30 ml PO QDAY PRN (Reason: constipation) Qty: 60 0RF Problem List Clinical Impression: Adverse drug effect Patient/Caregiver Discharge Instructions Education Materials: ED Drug Reaction, Other Additional Instructions: Please follow-up with PCP within 24-48 hours and return immediately if symptoms worsen. 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 Olivares
== END 2025-01-17 19:02 | disposition home or self-care (01) ==
LOC: SERX 19:08
PROVIDERS: Emergency Provider Emergency Medicine
DX: T50.905A Adverse effect of unspecified drugs, medicaments and biological substances, initial encounter (principal); I10 Essential (primary) hypertension; K59.00 Constipation, unspecified; Z79.1 Long term (current) use of non-steroidal anti-inflammatories (NSAID)
CPT/HCPCS: 99281; A9270

== ENCOUNTER 2025-01-19 00:05 | Emergency (ER) | payer MEDICARE, SELFPAY ==
[2025-01-19 00:06] VITALS: BMI 27.8
[2025-01-19 00:26] VITALS: BP 132/75; PULSE 88; RESP 18; TEMP 37.1; O2SAT 95
--- NOTE | 2025-01-19 00:43 | EDNOTE_ITS ---
ED Anxiety RME/HPI General Chief Complaint: General Adult/Misc Complain Stated Complaint: CANT SLEEP Time Seen by Provider: 01/19/25 00:37 Arrival date/time: 01/19/25 00:05 74M with history of HTN presents to ED with intermittent insomnia recently after he ran out of his Tramadol he's been taking for a month. Separately, patient has also bee constipated since taking Tramadol. Patient was recently in here multiple times for the latter issue with unremarkable extensive work-up. This is patient's 3rd visit for this and he wants some hydroxyzine because it worked for him yesterday. Limitations: no limitations Related Data Home Medications ?Medication ?Instructions ?Recorded ?Confirmed ACETAMINOPHEN WITH CODEINE 1 - 2 tabs PO QPM ##0 03/04 (TYLENOL W/COD #3) Oxycodone Hcl/Acetaminophen * 1 tab PO TID ##0 1 (PERCOCET 7.5/325 *) Tramadol Hcl 50 mg PO TID ##0 03/04/10 lisinopril 10 mg tablet 10 mg PO DAILY ##0 03/04/10 meloxicam 15 mg tablet 15 mg PO DAILY ##0 03/04/10 Previous Rx's ?Medication ?Instructions ?Recorded amoxicillin 500 mg tablet 500 mg PO TID #21 tabs 02/23 ibuprofen 600 mg tablet 600 mg PO TID PRN pain #30 t abs 05/01/22 nirmatrelvir 300 mg (150 mg See Rx Instructions PO .CO MPLEX 05/01/22 x2)-ritonavir 100 mg tablet,dose #30 tabs pack (Paxlovid) acetaminophen 325 mg tablet 325 mg PO QID #30 tabs (Tylenol) acetaminophen 500 mg tablet 1,000 mg (2 x 500 mg) PO Q 6H PRN 11/14/24 (Tylenol Extra Strength) pain #20 tabs lorazepam 2 mg tablet (Ativan) 2 mg PO TID PRN agitati on #10 tabs 11/14/24 baclofen 5 mg tablet 5 mg PO BID PRN muscle spasm #14 12/02/24 tabs peg 3350-electrolytes 236 240 ml PO Q10M #4,000 mL 08/16 gram-22.74 gram-6.74 gram-5.86 gram solution (Golytely) magnesium hydroxide 2,400 mg/10 mL 30 ml PO QDAY PRN c onstipation #60 01/05/25 oral suspension (Milk Of Magnesia mL Concentrated) cefdinir 300 mg capsule 300 mg PO BID #14 caps 01/14 docusate sodium 100 mg capsule 100 mg PO BID #30 caps 01/14/25 (Colace) lactulose 10 gram/15 mL oral 30 ml PO BID #300 mL 12/24 05/16 solution lactulose 10 gram/15 mL oral 30 ml PO BID #300 mL 12/24 05/16 solution hydroxyzine pamoate 25 mg capsule 25 mg PO BID PRN ins omnia #14 caps 01/19/25 (Vistaril) Allergies Allergy/AdvReac Type Severity Reaction Status Date / Time No Known Allergies Allergy Verified 01/19/25 00:10 Review of Systems Review of Systems Systems Reviewed: All systems reviewed, normal except as documented Neurologic Neurologic: Reports as per HPI and Reports other (insomnia) Past Medical History Past Medical History CARDIAC: Positive Hypercholesterolemia and Hypertension; Negative Congestive Heart Failure RESPIRATORY: Negative Chronic Obstructive Pulmonary Disease (COPD) GENITOURINARY: Positive Benign Prostatic Hyperplasia; Negative Renal Disease MUSCULOSKELETAL: Positive Musculoskeletal Disorders and Arthritis ENDOCRINE: Positive Hypothyroidism; Negative Diabetes Mellitus Type 1 or Diabetes Mellitus Type 2 OTHER HISTORY: Positive Falls Social History SMOKING STATUS: Never smoker ED Exam General Limitations: Present no limitations General appearance: Present alert and in no apparent distress Head Head exam: Present atraumatic Neck Neck exam: Present normal inspection, full ROM and trachea midline Chest Chest inspection: Present normal inspection and symmetric chest wall rise Neurological Exam Neurological exam: Present alert and oriented X3 Psychiatric Psychiatric exam: Present normal affect and normal mood Skin Skin exam: Present warm, dry, intact and normal color Course Quality Measures none Orders Category Date Time Status hydrOXYzine HCL [Atarax] Med 01/19/25 00:38 Discontinued 25 mg PO X1 ONE Vital Signs Vital signs: Vital Signs Temperature 98.7 F 01/19/25 00:26 Pulse Rate 88 01/19/25 00:26 Respiratory Rate 18 01/19/25 00:26 Blood Pressure 132/75 H 01/19/25 00:26 Pulse Oximetry (%) 95 01/19/25 00:26 Oxygen Delivery Method Room Air 01/19/25 00:26 Anxiety MDM Narrative MDM Narrative: 74M with history of HTN presents to ED with intermittent insomnia recently after he ran out of his Tramadol he's been taking for a month. Separately, patient has also bee constipated since taking Tramadol. Patient was recently in here multiple times for the latter issue with unremarkable extensive work-up. This is patient's 3rd visit for this and he wants some hydroxyzine because it worked for him yesterday. Physical exam reveals well-appearing male. Speech normal. Gait normal. Patient is afebrile, calm, and alert. Tramadol is likely causing both constipation due to its opioid properties, and lack of use is causing mild withdrawal symptoms due its SNRI properties. Meds and curriculum counselor given. Patient data External records reviewed:: [facility] previous records Clinical information provided by:: patient Social determinants that could affect healthcare access:: none Patient has the following chronic illnesses:: HTN How is presenting disease/condition affected by chronic disease/condition?: uneffected by Evaluation data The following diagnostics were reviewed and interpreted by me:: other (specify) (none) Lab and/or radiology exams considered but not ordered:: not ordered Interpretation Summary: n/a Medications / Prescriptions Medications or Prescriptions considered but not ordered:: ordered Medication administrations:: Medication Administration History Discontinued Medications Hydroxyzine HCl (Hydroxyzine Hcl 25 Mg Tablet) 25 mg PO X1 ONE Stop: 01/19/25 00:39 Consultations Consultation(s) initiated? (list below): No Diagnosis Differential diagnosis anxiety: hyperventilation, panic disorder, acute anxiety and other (insomnia and drug adverse effect) Most likely diagnosis given after review of the tests above:: insomnia and drug adverse effect Admission Indicated Admission indicated?: not indicated Admission Request Was there a request for admission?: No Disposition Plan Disposition Plan: Discharge Discharge Attestation Discharge Attestation: The patient and all family members were given an opportunity to ask questions and understood the discharge instructions. Discharge instructions specifically effects, indications for sooner follow up or return to the emergency department, and the expected course of current diagnosis. Patient condition: Stable Discharge Plan Plan Patient Disposition: HOME (Self Care) Discharge Disposition comment: Stable Prescriptions/Referrals Prescriptions/Med Rec: New hydroxyzine pamoate [Vistaril] 25 mg capsule 25 mg PO BID PRN (Reason: insomnia) Qty: 14 0RF No Action ACETAMINOPHEN WITH CODEINE (TYLENOL W/COD #3) 1 TAB tablet 1 - 2 tabs PO QPM Qty: 0 meloxicam 15 MG tablet 15 mg PO DAILY Qty: 0 lisinopril 10 MG tablet 10 mg PO DAILY Qty: 0 Oxycodone Hcl/Acetaminophen * (PERCOCET 7.5/325 *) 1 TAB tablet 1 tab PO TID Qty: 0 Tramadol Hcl 50 MG tablet 50 mg PO TID Qty: 0 amoxicillin 500 mg tablet 500 mg PO TID Qty: 21 0RF acetaminophen [Tylenol Extra Strength] 500 mg tablet 1,000 mg PO Q6H PRN (Reason: pain) Qty: 20 0RF lorazepam [Ativan] 2 mg tablet 2 mg PO TID PRN (Reason: agitation) Qty: 10 0RF peg 3350-electrolytes [Golytely] 236-22.74-6.74 -5.86 gram recon soln 240 ml PO Q10M Qty: 4000 0RF Rx Instructions: until fecal effluent is clear docusate sodium [Colace] 100 mg capsule 100 mg PO BID Qty: 30 0RF lactulose 10 gram/15 mL solution 30 ml PO BID Qty: 300 0RF cefdinir 300 mg capsule 300 mg PO BID Qty: 14 0RF lactulose 10 gram/15 mL solution 30 ml PO BID Qty: 300 0RF Paxlovid 300 mg (150 mg x 2)-100 mg tablets,dose pack See Rx Instructions .ROUTE .COMPLEX Qty: 30 0RF Rx Instructions: take TWO 150 mg tablets of nirmatrelvir with ONE 100 mg tablet of ritonavir twice daily for 5 days ibuprofen 600 mg tablet 600 mg PO TID PRN (Reason: pain) Qty: 30 0RF acetaminophen [Tylenol] 325 mg tablet 325 mg PO QID Qty: 30 0RF baclofen 5 mg tablet 5 mg PO BID PRN (Reason: muscle spasm) Qty: 14 0RF magnesium hydroxide [Milk Of Magnesia Concentrated] 2,400 mg/10 mL suspension 30 ml PO QDAY PRN (Reason: constipation) Qty: 60 0RF Problem List Clinical Impression: Adverse drug effect, Insomnia Patient/Caregiver Discharge Instructions Education Materials: ED Insomnia Additional Instructions: Please follow-up with PCP within 24-48 hours and return immediately if symptoms worsen. Print Language: Estonian Stand Alone Forms: Patient Portal Info Letter PA/HEEL COMPRESSOR Supervising Physician PA/HEEL COMPRESSOR Supervising Physician: Dr. Olivares
== END 2025-01-19 00:46 | disposition home or self-care (01) ==
LOC: SERX 01:07
PROVIDERS: Emergency Provider Emergency Medicine
DX: G47.00 Insomnia, unspecified (principal); K59.00 Constipation, unspecified; T40.421A Poisoning by tramadol, accidental (unintentional), initial encounter
CPT/HCPCS: 99281; A9270

== ENCOUNTER 2025-01-21 03:00 | Emergency (ER) | payer MEDICARE, SELFPAY ==
[2025-01-21 03:05] VITALS: BP 172/73; PULSE 68; RESP 16; TEMP 36.8; O2SAT 98
--- NOTE | 2025-01-21 03:34 | PD.EDNV ---
Nausea/Vomit./Diarrhea-RME/HPI General Chief complaint: Nausea/Vomiting/Diarrhea Stated complaint: DIARRHEA Time Seen by Provider: 01/21/25 03:09 Arrival date/time: 01/21/25 03:00 This is a case of 75-year-old male who came in in the emergency room due to diarrhea 6 times today none watery nonbloody nonmucoid patient denies any abdominal pain nor vomiting denies any fever or chills patient also concerned with difficulty of sleeping he was already seen by the primary care physician and was given hydroxyzine twice a day still with problem with sleeping thus patient request for another medication denies chest pain shortness of breath palpitation denies blood in stool Limitations: no limitations Related Data Home Medications ?Medication ?Instructions ?Recorded ?Confirmed ACETAMINOPHEN WITH CODEINE 1 - 2 tabs PO QPM ##0 03/04/10 (TYLENOL W/COD #3) Oxycodone Hcl/Acetaminophen * 1 tab PO TID ##0 03/04/10 (PERCOCET 7.5/325 *) Tramadol Hcl 50 mg PO TID ##0 03/04/10 lisinopril 10 mg tablet 10 mg PO DAILY ##0 03/04/10 meloxicam 15 mg tablet 15 mg PO DAILY ##0 03/04/10 Previous Rx's ?Medication ?Instructions ?Recorded amoxicillin 500 mg tablet 500 mg PO TID #21 tabs 02/23/22 ibuprofen 600 mg tablet 600 mg PO TID PRN pain #30 tabs 05/01/22 nirmatrelvir 300 mg (150 mg See Rx Instructions PO .COMPLEX 05/01/22 x2)-ritonavir 100 mg tablet,dose #30 tabs pack (Paxlovid) acetaminophen 325 mg tablet 325 mg PO QID #30 tabs 11/14/24 (Tylenol) acetaminophen 500 mg tablet 1,000 mg (2 x 500 mg) PO Q6H PRN 11/14/24 (Tylenol Extra Strength) pain #20 tabs lorazepam 2 mg tablet (Ativan) 2 mg PO TID PRN agitation #10 tabs 11/14/24 baclofen 5 mg tablet 5 mg PO BID PRN muscle spasm #14 12/02/24 tabs peg 3350-electrolytes 236 240 ml PO Q10M #4,000 mL 12/28/24 gram-22.74 gram-6.74 gram-5.86 gram solution (Golytely) magnesium hydroxide 2,400 mg/10 mL 30 ml PO QDAY PRN constipation #60 01/05/25 oral suspension (Milk Of Magnesia mL Concentrated) cefdinir 300 mg capsule 300 mg PO BID #14 caps 01/14/25 docusate sodium 100 mg capsule 100 mg PO BID #30 caps 01/14/25 (Colace) lactulose 10 gram/15 mL oral 30 ml PO BID #300 mL 01/14/25 solution lactulose 10 gram/15 mL oral 30 ml PO BID #300 mL 01/14/25 solution hydroxyzine pamoate 25 mg capsule 25 mg PO BID PRN insomnia #14 caps 01/19/25 (Vistaril) amoxicillin 875 mg-potassium 1 tab PO BID #20 tabs 01/21/25 clavulanate 125 mg tablet loperamide 2 mg capsule (Imodium 2 mg PO Q6H PRN loose stool #10 01/21/25 A-D) caps melatonin 10 mg capsule 10 mg PO HS PRN sleep #10 caps 01/21/25 Allergies Allergy/AdvReac Type Severity Reaction Status Date / Time No Known Allergies Allergy Verified 01/19/25 00:10 Review of Systems Review of Systems Systems Reviewed: All systems reviewed, normal except as documented Constitutional Constitutional: Reports system reviewed and no additional complaints, except as documented and Reports as per HPI ENT Ears, Nose, Mouth, and Throat: Denies dysphagia and Denies odynophagia Cardiovascular Cardiovascular: Reports system reviewed and no additional complaints, except as documented, Reports as per HPI and Denies chest pain Respiratory Respiratory: Reports system reviewed and no additional complaints, except as documented and Reports as per HPI Gastrointestinal Gastrointestinal: Reports system reviewed and no additional complaints, except as documented, Reports as per HPI, Denies abdominal pain, Denies belching, Denies bloating, Denies change in bowel habits, Denies change in stool character, Denies coffee ground emesis, Denies constipation, Denies cramping, Denies diarrhea, Denies dyspepsia, Denies dysphagia, Denies early satiety, Denies excessive flatus, Denies fecal incontinence, Denies heartburn, Denies hematemesis, Denies hematochezia, Reports loose stools, Denies melena, Denies nausea, Denies odynophagia, Denies tenesmus and Denies vomiting Musculoskeletal Musculoskeletal: Reports system reviewed and no additional complaints, except as documented and Reports as per HPI Neurologic Neurologic: Reports system reviewed and no additional complaints, except as documented and Reports as per HPI Psychiatric Psychiatric: Reports abnormal sleep pattern Past Medical History Past Medical History CARDIAC: Positive Hypercholesterolemia and Hypertension; Negative Congestive Heart Failure RESPIRATORY: Negative Chronic Obstructive Pulmonary Disease (COPD) GENITOURINARY: Positive Benign Prostatic Hyperplasia; Negative Renal Disease MUSCULOSKELETAL: Positive Musculoskeletal Disorders and Arthritis ENDOCRINE: Positive Hypothyroidism; Negative Diabetes Mellitus Type 1 or Diabetes Mellitus Type 2 OTHER HISTORY: Positive Falls Social History SMOKING STATUS: Never smoker ED Exam General Limitations: Present no limitations General appearance: Present alert, in no apparent distress and other (Patient is awake alert oriented not in distress nontoxic looking well-hydrated well nourished) Head Head exam: Present atraumatic, normocephalic and normal inspection Eye Eye exam: Present normal appearance, PERRL and EOMI ENT ENT exam: Present normal exam, normal oropharynx and mucous membranes moist Neck Neck exam: Present normal inspection, full ROM and trachea midline; Absent tenderness, meningismus, lymphadenopathy or thyromegaly Chest Chest inspection: Present normal inspection and symmetric chest wall rise; Absent tenderness Respiratory Respiratory exam: Present normal lung sounds bilaterally; Absent respiratory distress, wheezes, stridor, accessory muscle use or prolonged expiratory phase Cardiovascular Cardiovascular exam: Present regular rate, normal rhythm and normal heart sounds; Absent bradycardia, tachycardia, irregular rhythm, systolic murmur or diastolic murmur Abdominal Exam Abdominal exam: Present soft, tenderness (Moderate tenderness on the right lower quadrant), guarding (Mild guarding right lower quadrant no CVA tenderness) and normal bowel sounds; Absent distention, rebound, rigidity, diminished bowel sounds, hyperactive bowel sounds, hypoactive bowel sounds, incision, psoas sign, obturator sign, Araiza's sign, Rovsing's sign, tenderness at McBurney's Point, ascites, mass, hernia or scar Extremities Exam Extremities exam: Present normal inspection and full ROM Back Exam Back exam: Present normal inspection and full ROM Neurological Exam Neurological exam: Present alert, oriented X3, CN II-XII intact, normal gait and reflexes normal; Absent motor sensory deficit Psychiatric Psychiatric exam: Present normal affect, normal mood and other (uncooperative); Absent depressed, agitated, anxious, flat affect, manic, homicidal ideation or suicidal ideation Skin Skin exam: Present warm, dry, intact, normal color and other (excellent skin turgor) Course Quality Measures none Orders Category Date Time Status CT abdomen pelvis wo con Stat Exams 01/21/25 03:16 Ordered CBC Stat Lab 01/21/25 03:16 Ordered Comprehensive Metabolic Panel Stat Lab 01/21/25 03:16 Ordered Lipase Stat Lab 01/21/25 03:16 Ordered Urinalysis Stat Lab 01/21/25 03:16 Ordered Vital Signs Vital signs: Vital Signs Temperature 98.2 F 01/21/25 03:05 Pulse Rate 68 01/21/25 03:05 Respiratory Rate 16 01/21/25 03:05 Blood Pressure 172/73 H 01/21/25 03:05 Pulse Oximetry (%) 98 01/21/25 03:05 Oxygen Delivery Method Room Air 01/21/25 03:05 Oxygen saturation is 98% in room Nausea/Vomiting/Diarrhea MDM Narrative MDM Narrative:: This is a case of 75-year-old male who came in in the emergency room due to diarrhea 6 times today none watery nonbloody nonmucoid patient denies any abdominal pain nor vomiting denies any fever or chills patient also concerned with difficulty of sleeping he was already seen by the primary care physician and was given hydroxyzine twice a day still with problem with sleeping thus patient request for another medication denies chest pain shortness of breath palpitation denies blood in stool physical examination patient is awake alert oriented not in distress nontoxic looking well-hydrated excellent skin turgor abdominal exam noted a moderate tenderness on the right lower quadrant with mild guarding no rebound negative psoas negative obturator negative Rovsing's negative McBurney's negative Araiza sign negative CVA tenderness the rest of the physical examination and neurological exam is normal and unremarkable patient was here January 14, 2025 where blood test were performed and everything were normal CT scan is also normal only constipation thus patient was discharged with constipation and was prescribed with glycerin suppository due to my positive physical examination tenderness and guarding on the right lower quadrant I cannot totally rule out appendicitis and diverticulitis thus I ordered CT scan again abdomen and pelvis with some blood test and urinalysis I discussed with the patient with a RN who can speak and translate Nepalese patient refused the blood urinalysis and CT scan of the abdomen pelvis patient discussed the risk of not performing the imaging and bloodtest he stated that he wants only medication for diarrhea and antibiotic and indication for sleeping I discussed it with Dr. Brownlee notified regarding the condition of the patient my physical examination and the refusal for the examination I was ordered to discharge patient as AMA Patient refused blood test urinalysis and CT scan patient decided to leave AGAINST MEDICAL ADVICE I have assessed the patient ability to make an informed decision and feeling that the patient has the capacity to comprehend information regarding the current medical condition and appreciate the impact of the disease or condition and the consequences of the refusal of action for the treatment including the foregoing treatment the patient possess the ability to evaluate all treatment option compared the risks and benefits. Patient communicates he is choice in a consistent manner over the time and is able to make rational choices I have explained to the patient further testing treatment and evaluation I would like to perform during the current emergency department visit as well as the possible alternatives that could be accomplished in a timely manner I have outlined the possible risk of foregoing any of all this intervention and the patient understands and acknowledge the decision to leave may result and undesirable consequences suggested permanent disability and a loss of current lifestyle even though leaving AMA is not ideal I have instructed the patient to follow any discharge instruction given take any medication prescribed and resume care as soon as possible with another provider the conversation was witnessed by another member of the emergency department and we clearly communicates that the patient is welcome to return at any time to continue care at our facility Patient data External records reviewed:: [facility] previous records Clinical information provided by:: patient Social determinants that could affect healthcare access:: none Patient has the following chronic illnesses:: None How is presenting disease/condition affected by chronic disease/condition?: no chronic disease Evaluation data The following diagnostics were reviewed and interpreted by me:: other (specify) (Refused) Lab and/or radiology exams considered but not ordered:: Refused Interpretation Summary: Refused Medications / Prescriptions Medications / Prescriptions considered but not ordered:: Given Medication administrations:: None Consultations Consultation(s) initiated? (list below): Yes Consultation #1 (Physician, Specialty, Details): Dr. Brownlee discussed patient condition my physical examination and review of imaging and blood test I was ordered to discharge patient AMA Diagnosis Nausea Differential Diagnosis: traveler's diarrhea, food poisoning, gastroenteritis, dehydration and other (Diverticulitis) Most likely diagnosis given after review of the tests above:: Diarrhea left AGAINST MEDICAL ADVICE Admission Indicated Admission indicated?: not indicated Explain why admission is indicated or not indicated:: Patient AMA Admission Request Was there a request for admission?: No Admission Attestation Admission request attestation: Left AGAINST MEDICAL ADVICE Disposition Plan Disposition Plan: other (specify) (AMA) Discharge Attestation Discharge Attestation: AMA Discharge Plan Plan Patient Disposition: HOME (Self Care) Patient condition on transfer: Stable Prescriptions/Referrals Prescriptions/Med Rec: New amoxicillin-pot clavulanate 875-125 mg tablet 1 tab PO BID Qty: 20 0RF loperamide [Imodium A-D] 2 mg capsule 2 mg PO Q6H PRN (Reason: loose stool) Qty: 10 0RF melatonin 10 mg capsule 10 mg PO HS PRN (Reason: sleep) Qty: 10 0RF No Action ACETAMINOPHEN WITH CODEINE (TYLENOL W/COD #3) 1 TAB tablet 1 - 2 tabs PO QPM Qty: 0 meloxicam 15 MG tablet 15 mg PO DAILY Qty: 0 lisinopril 10 MG tablet 10 mg PO DAILY Qty: 0 Oxycodone Hcl/Acetaminophen * (PERCOCET 7.5/325 *) 1 TAB tablet 1 tab PO TID Qty: 0 Tramadol Hcl 50 MG tablet 50 mg PO TID Qty: 0 amoxicillin 500 mg tablet 500 mg PO TID Qty: 21 0RF acetaminophen [Tylenol Extra Strength] 500 mg tablet 1,000 mg PO Q6H PRN (Reason: pain) Qty: 20 0RF lorazepam [Ativan] 2 mg tablet 2 mg PO TID PRN (Reason: agitation) Qty: 10 0RF peg 3350-electrolytes [Golytely] 236-22.74-6.74 -5.86 gram recon soln 240 ml PO Q10M Qty: 4000 0RF Rx Instructions: until fecal effluent is clear docusate sodium [Colace] 100 mg capsule 100 mg PO BID Qty: 30 0RF lactulose 10 gram/15 mL solution 30 ml PO BID Qty: 300 0RF cefdinir 300 mg capsule 300 mg PO BID Qty: 14 0RF lactulose 10 gram/15 mL solution 30 ml PO BID Qty: 300 0RF Paxlovid 300 mg (150 mg x 2)-100 mg tablets,dose pack See Rx Instructions .ROUTE .COMPLEX Qty: 30 0RF Rx Instructions: take TWO 150 mg tablets of nirmatrelvir with ONE 100 mg tablet of ritonavir twice daily for 5 days ibuprofen 600 mg tablet 600 mg PO TID PRN (Reason: pain) Qty: 30 0RF acetaminophen [Tylenol] 325 mg tablet 325 mg PO QID Qty: 30 0RF baclofen 5 mg tablet 5 mg PO BID PRN (Reason: muscle spasm) Qty: 14 0RF magnesium hydroxide [Milk Of Magnesia Concentrated] 2,400 mg/10 mL suspension 30 ml PO QDAY PRN (Reason: constipation) Qty: 60 0RF hydroxyzine pamoate [Vistaril] 25 mg capsule 25 mg PO BID PRN (Reason: insomnia) Qty: 14 0RF Problem List Clinical Impression: Diarrhea, Insomnia, Left against medical advice Patient/Caregiver Discharge Instructions Education Materials: Treating Diarrhea, ED Diarrhea, Unknown Cause, ED Insomnia Additional Instructions: It is very important to see your primary care physician tomorrow or today for reevaluation of your diarrhea and insomnia for any worsening symptoms or any emergent concern return to the emergency room immediately or call 911 you are welcome to return here in the emergency room for further evaluation and treatment Pedialyte Gatorade for every bouts of diarrhea finish the course of antibiotic follow-up with your primary care physician for your insomnia Print Language: Nepalese Stand Alone Forms: Janine Award Info., Patient Portal Info Letter PA/LOAN EXAMINER Supervising Physician PA/AKIKO Supervising Physician: dr brownlee
== END 2025-01-21 03:40 | disposition left against medical advice (07) ==
LOC: SERX 03:40
PROVIDERS: Emergency Provider Emergency Medicine
DX: G47.00 Insomnia, unspecified (principal); R19.7 Diarrhea, unspecified; Z53.29 Procedure and treatment not carried out because of patient's decision for other reasons
CPT/HCPCS: 80053; 81001; 83690; 85025; 99281

== ENCOUNTER 2025-01-22 21:06 | Emergency (ER) | payer MEDICARE, SELFPAY ==
[2025-01-22 21:33] VITALS: BP 99/63; PULSE 84; RESP 18; TEMP 36.9; O2SAT 97; BMI 28.3
--- NOTE | 2025-01-22 21:37 | EKG_ITS ---
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
--- NOTE | 2025-01-22 21:37 | XR_ITS ---
EXAMINATION: PA chest single view TECHNIQUE: Upright PA chest single view Date and time: January 22, 2025, 2137 hours INDICATIONS: Chest pain coughing shortness of breath 3 days FINDINGS: Mild hyperexpansion Mild prominence left ventricle No pneumonia or pulmonary edema IMPRESSION: Mild hyperexpansion Mild prominence left ventricle No pneumonia identified
--- NOTE | 2025-01-22 21:38 | PD.EDRME ---
Rapid Medical Screening Exam RME Arrival date/time: 01/22/25 21:06 This is a case of 75-year-old male who came in in the emergency room due to chest pain shortness of breath cough and nasal congestion for 3 days worsening of the symptoms this patient decided to start consult here in the emergency room Chief Complaint: Flu Like Symptoms Time Seen by Provider: 01/22/25 21:09 Vital signs: Vital Signs Temperature 98.4 F 01/22/25 21:33 Pulse Rate 84 01/22/25 21:33 Respiratory Rate 18 01/22/25 21:33 Blood Pressure 99/63 01/22/25 21:33 Pulse Oximetry (%) 97 01/22/25 21:33 Oxygen Delivery Method Room Air 01/22/25 21:33 Exam: Normal rate regular rhythm no murmur clear breath Clinical Impression: Chest pain cough
[2025-01-22 22:02] LABS: Basophils # (Auto) 0.1 Thou/mm3 (0.0-0.2); Basophils % (Auto) 1 % (0-2.5); Eosinophils # (Auto) 0.2 Thou/mm3 (0.0-0.5); Eosinophils % (Auto) 2 % (0-10); Hematocrit 38.3 % (41.0-53.0); Hemoglobin 12.7 g/dL (13.5-16.0); Immature Granulocytes Auto 0.03 Thou/mm3 (0.00-0.00); Lymphocytes # (Auto) 2.6 Thou/mm3 (1.0-4.8); Lymphocytes % (Auto) 25 % (10-50); Mean Corpuscular HGB Conc 33.2 g/dl (31.0-37.0); Mean Corpuscular Hemoglobin 31.3 pg (25.0-35.0); Mean Corpuscular Volume 94 fL (80-100); Monocytes # (Auto) 0.8 Thou/mm3 (0.0-0.8); Monocytes % (Auto) 7 % (0-12); Neutrophils # (Auto) 6.8 Thou/mm3 (1.8-7.7); Neutrophils % (Auto) 65 % (37-80); Nucleated Red Blood Cell # 0.00 Thou/mm3 (0.00-0.00); Nucleated Red Blood Cell % 0 /100 WBC (0); Platelet Count 195 Thou/mm3 (140-440); RDW Standard Deviation 47.5 fL (35.1-43.9); Red Blood Count 4.06 Miln/mm3 (4.50-5.90); White Blood Count 10.4 Thou/mm3 (3.8-10.6)
[2025-01-22 22:30] LABS: Alanine Aminotransferase 17 U/L (10-49); Albumin, Serum 4.5 gm/dL (3.4-4.8); Albumin/Globulin Ratio 1.3 (1.2-2.2); Alkaline Phosphatase 71 U/L (46-116); Anion Gap 9 (7-16); Aspartate Amino Transferase 26 U/L (0-34); BUN/Creatinine Ratio 7 Ratio (12-20); Bilirubin,Total 0.6 mg/dL (0.3-1.2); Blood Urea Nitrogen 9 mg/dL (9-23); Calcium 9.6 mg/dL (8.3-10.6); Calcium (Corrected) 9.6 mg/dL (8.5-10.1); Carbon Dioxide 26.7 mMol/L (20.0-31.0); Chloride 109 mMol/L (98-107); Creatinine (Component) 1.3 mg/dL (0.6-1.3); Estimated Creatinine Clearance 42.5 mL/min (>60); Globulin 3.4 gm/dL (2.3-3.5); Glucose 96 mg/dL (74-106); Osmolality,Calculated 287 (275-295); Potassium 3.9 mMol/L (3.4-5.1); Sodium 145 mMol/L (136-145); Total Protein 7.9 gm/dL (5.7-8.2); Troponin I < 0.020 ng/mL (0.0-0.045); eGFR 57 See Note
[2025-01-22 22:51] LABS: Collection Type, Urine Clean Catch; Squamous Epithelial Cell,Urine 0 /hpf (0-5)
[2025-01-22 22:59] LABS: Bilirubin,Urine Negative (Negative); Blood,Urine Trace (Negative); Clarity,Urine Clear (Clear/Hazy); Color,Urine Yellow (Lt Yel-Yel); Glucose, Urine Negative (Negative); Hyaline Casts,Urine < 1 /hpf (0-1); Ketones,Urine Negative (Negative); Leukocyte Esterase,Urine Negative (Negative); Nitrite,Urine Negative (Negative); PH,Urine 5.5 (5.0-7.0); Protein,Urine Negative (Neg - Trace); RBC,Urine 1 /hpf (0-3); Specific Gravity,Urine 1.023 (1.001-1.035); Urobilinogen,Urine Negative mg/dL (0.0-1.0); WBC,Urine 1 /hpf (0-5)
[2025-01-23 01:18] LABS: Troponin I < 0.020 ng/mL (0.0-0.045)
[2025-01-23] MEDS: BENZONATATE 100 MG CAPSULE PO (01:18)
[2025-01-23 02:28] VITALS: PULSE 84; RESP 16; O2SAT 97
--- NOTE | 2025-01-23 03:11 | PD.EDURI ---
Upper Respiratory Inf. RME/HPI General Chief Complaint: Flu Like Symptoms Stated Complaint: COUGHING Time Seen by Provider: 01/22/25 21:09 Arrival date/time: 01/22/25 21:06 Limitations: no limitations RME / HPI RME / HPI Narrative: 01/22/25 21:06 This is a case of 75-year-old male who came in in the emergency room due to chest pain shortness of breath cough and nasal congestion for 3 days worsening of the symptoms this patient decided to start consult here in the emergency room Dr. [facility] ED Evaluation: 75yo male with a history of HTN, HLD, BPH presents to the ED for a chief complaint of a dry cough x yesterday. Patient reports associated headache due to coughing. Denies any chest pain, shortness of breath, fever, chills, decreased appetite, N/V, or any other associated symptoms. NKA. Related Data Home Medications ?Medication ?Instructions ?Recorded ?Confirmed ACETAMINOPHEN WITH CODEINE 1 - 2 tabs PO QPM ##0 03/04/10 (TYLENOL W/COD #3) Oxycodone Hcl/Acetaminophen * 1 tab PO TID ##0 03/04/10 (PERCOCET 7.5/325 *) Tramadol Hcl 50 mg PO TID ##0 03/04/10 lisinopril 10 mg tablet 10 mg PO DAILY ##0 03/04/10 meloxicam 15 mg tablet 15 mg PO DAILY ##0 03/04/10 Previous Rx's ?Medication ?Instructions ?Recorded amoxicillin 500 mg tablet 500 mg PO TID #21 tabs 02/23/22 ibuprofen 600 mg tablet 600 mg PO TID PRN pain #30 tabs 05/01/22 nirmatrelvir 300 mg (150 mg See Rx Instructions PO .COMPLEX 05/01/22 x2)-ritonavir 100 mg tablet,dose #30 tabs pack (Paxlovid) acetaminophen 325 mg tablet 325 mg PO QID #30 tabs 11/14/24 (Tylenol) acetaminophen 500 mg tablet 1,000 mg (2 x 500 mg) PO Q6H PRN 11/14/24 (Tylenol Extra Strength) pain #20 tabs lorazepam 2 mg tablet (Ativan) 2 mg PO TID PRN agitation #10 tabs 11/14/24 baclofen 5 mg tablet 5 mg PO BID PRN muscle spasm #14 12/02/24 tabs peg 3350-electrolytes 236 240 ml PO Q10M #4,000 mL 12/28/24 gram-22.74 gram-6.74 gram-5.86 gram solution (Golytely) magnesium hydroxide 2,400 mg/10 mL 30 ml PO QDAY PRN constipation #60 01/05/25 oral suspension (Milk Of Magnesia mL Concentrated) cefdinir 300 mg capsule 300 mg PO BID #14 caps 01/14/25 docusate sodium 100 mg capsule 100 mg PO BID #30 caps 01/14/25 (Colace) lactulose 10 gram/15 mL oral 30 ml PO BID #300 mL 01/14/25 solution lactulose 10 gram/15 mL oral 30 ml PO BID #300 mL 01/14/25 solution hydroxyzine pamoate 25 mg capsule 25 mg PO BID PRN insomnia #14 caps 01/19/25 (Vistaril) amoxicillin 875 mg-potassium 1 tab PO BID #20 tabs 01/21/25 clavulanate 125 mg tablet loperamide 2 mg capsule (Imodium 2 mg PO Q6H PRN loose stool #10 01/21/25 A-D) caps melatonin 10 mg capsule 10 mg PO HS PRN sleep #10 caps 01/21/25 albuterol sulfate 90 mcg/actuation 1 inh inhalation QID PRN shortness 01/23/25 aerosol inhaler (Ventolin HFA) of breath or wheezing 3 days #8.5 grams Allergies Allergy/AdvReac Type Severity Reaction Status Date / Time No Known Allergies Allergy Verified 01/22/25 21:07 Review of Systems Review of Systems Systems Reviewed: All systems reviewed, normal except as documented Past Medical History Past Medical History CARDIAC: Positive Hypercholesterolemia and Hypertension; Negative Congestive Heart Failure RESPIRATORY: Negative Chronic Obstructive Pulmonary Disease (COPD) GENITOURINARY: Positive Benign Prostatic Hyperplasia; Negative Renal Disease MUSCULOSKELETAL: Positive Musculoskeletal Disorders and Arthritis ENDOCRINE: Positive Hypothyroidism; Negative Diabetes Mellitus Type 1 or Diabetes Mellitus Type 2 OTHER HISTORY: Positive Falls Social History SMOKING STATUS: Never smoker ED Exam General Limitations: Present no limitations General appearance: Present alert and in no apparent distress Head Head exam: Present atraumatic Eye Eye exam: Present normal appearance, PERRL and EOMI ENT ENT exam: Present normal exam, normal oropharynx and mucous membranes moist Neck Neck exam: Present normal inspection, full ROM and trachea midline Chest Chest inspection: Present normal inspection and symmetric chest wall rise Respiratory Respiratory exam: Present normal lung sounds bilaterally Cardiovascular Cardiovascular exam: Present regular rate, normal rhythm and normal heart sounds Abdominal Exam Abdominal exam: Present soft and normal bowel sounds Extremities Exam Extremities exam: Present normal inspection and full ROM Back Exam Back exam: Present normal inspection and full ROM Neurological Exam Neurological exam: Present alert, oriented X3 and CN II-XII intact Psychiatric Psychiatric exam: Present normal affect and normal mood Skin Skin exam: Present warm, dry, intact and normal color Course Course Course Narrative: CXR is ordered for determining the etiology of cough. Quality Measures none Orders Category Date Time Status EKG (ED ONLY) *Do not use* NOW Care 01/22/25 21:38 Completed EKG (ED Only) Stat Exams 01/22/25 21:37 Ordered XR chest 1V Stat Exams 01/22/25 21:37 Completed CBC Stat Lab 01/22/25 21:56 Completed Comprehensive Metabolic Panel Stat Lab 01/22/25 21:56 Completed Troponin I Stat Lab 01/22/25 21:56 Completed Troponin I Stat Lab 01/23/25 00:30 Completed Urinalysis Stat Lab 01/22/25 22:37 Completed Benzonatate [Tessalon] Med 01/23/25 00:08 Discontinued 100 mg PO X1 ONE Vital Signs Vital signs: Vital Signs Temperature 98.4 F 01/22/25 21:33 Pulse Rate 84 01/22/25 21:33 Respiratory Rate 18 01/22/25 21:33 Blood Pressure 99/63 01/22/25 21:33 Pulse Oximetry (%) 97 01/22/25 21:33 Oxygen Delivery Method Room Air 01/22/25 21:33 Upper Respiratory Infection MDM Narrative MDM Narrative:: Scribe Attestation: 01/23/25 Indu Ruth am scribing for and in the presence of Dr. Malloy. Patient otherwise is hemodynamically stable. No fevers. At this time I do not feel the patient has a pulm embolism. Patient data External records reviewed:: [facility] previous records (Per chart review, patient was seen here on 01/21/25 for diarrhea.) Clinical information provided by:: patient Social determinants that could affect healthcare access:: none Patient has the following chronic illnesses:: HTN, HLD, BPH How is presenting disease/condition affected by chronic disease/condition?: uneffected by Evaluation data The following diagnostics were reviewed and interpreted by me:: lab results, radiology exam(s) and EKG tracing(s) Lab and/or radiology exams considered but not ordered:: none Interpretation Summary: WBC normal, CMP normal, troponin normal, UA unremarkable. EKG done at 2148, sinus rhythm, rate of 88, PVCs, IL: 152, QTc: 375, no ST elevations or depressions, according to my interpretation. ----- [facility] Report Signed Patient: MARTÍNEZ HERNANDEZ. Record#: [id number] Birthdate: 1950 Age/Sex: 75 / M Location: [facility] Attending Dr: Ordering Physician: Simeon Jansen Date of Service: 01/22/25 Procedure(s): XR chest 1V Accession Number(s): [id number] cc: Cristian Ortega MD; Simeon Jansen~ EXAMINATION: PA chest single view TECHNIQUE: Upright PA chest single view Date and time: January 22, 2025, 2137 hours INDICATIONS: Chest pain coughing shortness of breath 3 days FINDINGS: Mild hyperexpansion Mild prominence left ventricle No pneumonia or pulmonary edema IMPRESSION: Mild hyperexpansion Mild prominence left ventricle No pneumonia identified Dictated By: Cristian Ortega MD Signed By: <Electronically signed by Cristian Ortega MD in OV> 01/22/252148 Medications / Prescriptions Medications or Prescriptions considered but not ordered:: none Medication administrations:: Medication Administration History Discontinued Medications Benzonatate (Benzonatate 100 Mg Capsule) 100 mg PO X1 ONE; Protocol Stop: 01/23/25 00:09 Last Admin: 01/23/25 01:18 Dose: 100 mg Documented By: CVL see above Consultations Consultation(s) initiated? (list below): No Diagnosis Upper Respiratory Differential Diagnosis: upper respiratory infection, viral infection, bronchitis and other (pneumonia) Most likely diagnosis given after review of the tests above:: see clinical impression below Admission Indicated Admission indicated?: not indicated Admission Request Was there a request for admission?: No Disposition Plan Disposition Plan: Discharge Discharge Attestation Discharge Attestation: The patient and all family members were given an opportunity to ask questions and understood the discharge instructions. Discharge instructions specifically effects, indications for sooner follow up or return to the emergency department, and the expected course of current diagnosis. Patient condition: Stable Discharge Plan Plan Patient Disposition: HOME (Self Care) Patient condition on transfer: Stable Prescriptions/Referrals Prescriptions/Med Rec: New albuterol sulfate [Ventolin HFA] 90 mcg/actuation HFA aerosol inhaler 1 inh inhalation QID PRN (Reason: shortness of breath or wheezing) 3 Days Qty: 8.5 0RF No Action ACETAMINOPHEN WITH CODEINE (TYLENOL W/COD #3) 1 TAB tablet 1 - 2 tabs PO QPM Qty: 0 meloxicam 15 MG tablet 15 mg PO DAILY Qty: 0 lisinopril 10 MG tablet 10 mg PO DAILY Qty: 0 Oxycodone Hcl/Acetaminophen * (PERCOCET 7.5/325 *) 1 TAB tablet 1 tab PO TID Qty: 0 Tramadol Hcl 50 MG tablet 50 mg PO TID Qty: 0 amoxicillin 500 mg tablet 500 mg PO TID Qty: 21 0RF acetaminophen [Tylenol Extra Strength] 500 mg tablet 1,000 mg PO Q6H PRN (Reason: pain) Qty: 20 0RF lorazepam [Ativan] 2 mg tablet 2 mg PO TID PRN (Reason: agitation) Qty: 10 0RF peg 3350-electrolytes [Golytely] 236-22.74-6.74 -5.86 gram recon soln 240 ml PO Q10M Qty: 4000 0RF Rx Instructions: until fecal effluent is clear docusate sodium [Colace] 100 mg capsule 100 mg PO BID Qty: 30 0RF lactulose 10 gram/15 mL solution 30 ml PO BID Qty: 300 0RF cefdinir 300 mg capsule 300 mg PO BID Qty: 14 0RF lactulose 10 gram/15 mL solution 30 ml PO BID Qty: 300 0RF Paxlovid 300 mg (150 mg x 2)-100 mg tablets,dose pack See Rx Instructions .ROUTE .COMPLEX Qty: 30 0RF Rx Instructions: take TWO 150 mg tablets of nirmatrelvir with ONE 100 mg tablet of ritonavir twice daily for 5 days ibuprofen 600 mg tablet 600 mg PO TID PRN (Reason: pain) Qty: 30 0RF acetaminophen [Tylenol] 325 mg tablet 325 mg PO QID Qty: 30 0RF baclofen 5 mg tablet 5 mg PO BID PRN (Reason: muscle spasm) Qty: 14 0RF magnesium hydroxide [Milk Of Magnesia Concentrated] 2,400 mg/10 mL suspension 30 ml PO QDAY PRN (Reason: constipation) Qty: 60 0RF hydroxyzine pamoate [Vistaril] 25 mg capsule 25 mg PO BID PRN (Reason: insomnia) Qty: 14 0RF amoxicillin-pot clavulanate 875-125 mg tablet 1 tab PO BID Qty: 20 0RF loperamide [Imodium A-D] 2 mg capsule 2 mg PO Q6H PRN (Reason: loose stool) Qty: 10 0RF melatonin 10 mg capsule 10 mg PO HS PRN (Reason: sleep) Qty: 10 0RF Referrals: Js Talley MD [Primary Care Provider, Family Practice] - In 1 week Problem List Clinical Impression: Cough Patient/Caregiver Discharge Instructions Education Materials: ED Cough Chronic Uncertain Cause Adult Additional Instructions: Return to the emergency department for worsening symptoms or any other concerns. Print Language: Upper Sorbian Stand Alone Forms: Janine Award Info., Patient Portal Info Letter
[2025-01-23 03:20] VITALS: RESP 16
== END 2025-01-23 03:21 | disposition home or self-care (01) ==
PROVIDERS: Nurse Practitioner Family; Emergency Provider Emergency Medicine; PCP Family Medicine
DX: R05.9 Cough, unspecified (principal); R07.9 Chest pain, unspecified; R06.02 Shortness of breath; I49.3 Ventricular premature depolarization; I10 Essential (primary) hypertension
CPT/HCPCS: 36415; 71045; 80053; 81001; 84484; 85025; 93005; 99283; A9270